=== PATIENT | female | born 1985 | race African-American/Black ===

== ENCOUNTER 2020-06-21 07:44 | Emergency (ER) | payer OTHER, SELFPAY ==
[2020-06-21 07:54] VITALS: BP 142/105; PULSE 87; RESP 20; TEMP 36.7; O2SAT 100
[2020-06-21] MEDS: diphenhydrAMINE HCl CAP 25 MG CAPSULE PO (08:37)
[2020-06-21] MEDS: FAMOTIDINE 20 MG TABLET PO (08:37)
--- NOTE | 2020-06-21 09:06 | ED.GENADULT ---
HPI - General Adult General Chief complaint: Unspecified Stated complaint: swollen lip Time Seen by Provider: 06/21/20 07:53 History of Present Illness HPI narrative: Patient is a 34-year-old female who presents ER with swelling to her lower lip. Left side. Began yesterday evening. Remains swollen this morning. Patient takes Metformin/HCTZ/amlodipine daily in the mornings. She had not taken medications last night prior to this starting. No difficulty breathing or swallowing. Reports this is happened intermittently over the last couple years. Denies any dental pain or trauma. No new lip loss or lipstick. She reports taking Benadryl last night but has not taken anything else today. Patient also reports that over the last week she has had some sinus congestion and tearing of the eyes related to seasonal allergies. Related Data Home Medications Medication Instructions Recorded Confirmed amlodipine 5 mg PO DAILY 06/21/20 06/21/20 hydrochlorothiazide 25 mg PO DAILY 06/21/20 06/21/20 metformin 500 mg PO BID 06/21/20 06/21/20 Allergies Allergy/AdvReac Type Severity Reaction Status Date / Time No Known Allergies Allergy Mild Unverified 06/21/20 07:58 Review of Systems Constitutional: Constitutional: Denies chills and Denies fever(s) ENT: Denies dental pain, Denies dysphagia, Denies hoarseness, Reports lip swelling, Denies mouth lesions, Reports nasal congestion, Denies sore throat, Denies throat swelling and Denies tongue swelling Respiratory: Respiratory: Denies cough, Denies dyspnea and Denies wheezing PMFSH Past Medical History Medical History (Updated 06/21/20 @ 09:46 by Cam Zambrano MD) Hypertension Prediabetes Surgical History Surgical History (Updated 06/21/20 @ 09:10 by Cam Zambrano MD) No history of previous surgery Social History Social History Gender identity (if verbalized by the patient): Female Exam Narrative: Exam Narrative: GENERAL: Well-appearing, well-nourished, and in no acute distress. HEAD: Normocephalic, atraumatic. ENT: Mucous membranes moist. Mild edema of the left lower lip. No intraoral ulcers. No evidence of infection to the outer lip. No lingular sublingular swelling. Tolerating oral secretions without issue. CHEST: No respiratory distress. No stridor. NEURO: Alert and oriented x3. PSYCH: Normal mood and affect. Course Course Emergency Course: No change in swelling of lip after Pepcid and Benadryl. Patient reports she cannot take steroids because it causes swelling for throat and tongue. Recommend she hold her home medications and follow-up with her doctor. She needs referral for allergy/immunology which she is verbalized understanding about. Vital Signs Vital signs: Vital Signs Temperature 98.1 F 06/21/20 07:54 Pulse Rate 87 06/21/20 07:54 Respiratory Rate 20 06/21/20 07:54 Blood Pressure 142/105 H 06/21/20 07:54 Pulse Oximetry 100 06/21/20 07:54 Temperature 98.1 F 06/21/20 07:54 Pulse Rate 87 06/21/20 07:54 Respiratory Rate 20 06/21/20 07:54 Blood Pressure 142/105 H 06/21/20 07:54 Pulse Oximetry 100 06/21/20 07:54 Medical Decision Making Vital Signs Vital Signs: Vital Signs Temperature 98.1 F 06/21/20 07:54 Pulse Rate 87 06/21/20 07:54 Respiratory Rate 20 06/21/20 07:54 Blood Pressure 142/105 H 06/21/20 07:54 Pulse Oximetry 100 06/21/20 07:54 Temperature 98.1 F 06/21/20 07:54 Pulse Rate 87 06/21/20 07:54 Respiratory Rate 20 06/21/20 07:54 Blood Pressure 142/105 H 06/21/20 07:54 Pulse Oximetry 100 06/21/20 07:54 Discharge Plan Discharge Clinical Impression: Angioedema of lips Patient Disposition: Home, Self-Care Condition: Stable Instructions: Angioedema (ED) Additional Instructions: You have angioedema of your lip. This can sometimes be provoked by medications but often times it can be no autoimmune reaction. You should be referred to an aller
[2020-06-21 10:02] VITALS: BP 142/105; PULSE 77; RESP 20; O2SAT 100
== END 2020-06-21 10:03 | disposition home or self-care (01) ==
PROVIDERS: Emergency Provider Emergency Medicine; PCP Internal Medicine
DX: T78.3XXA Angioneurotic edema, initial encounter (principal); Z79.84 Long term (current) use of oral hypoglycemic drugs; I10 Essential (primary) hypertension; E11.9 Type 2 diabetes mellitus without complications
CPT/HCPCS: 99283; A9270

== ENCOUNTER 2020-09-07 10:15 | Outpatient (CLI) | payer OTHER, SELFPAY ==
--- NOTE | ~2020-09-07 | XR_ITS ---
EXAMINATION:XR_[id number]_CR DATE: 09/07/2020 10:41 INDICATION: Neck pain TECHNIQUE: AP, lateral, lateral swimmers and odontoid views of the cervical spine are provided. COMPARISON: None FINDINGS: Mild cervical dextrocurvature. Reversal of the normal cervical lordosis in the lower cervical spine w ith straightening of the upper cervical lordosis. 1-2 mm anterolisthesis C4 on C5. Odontoid is intact . Normal atlantoaxial interval. Vertebral body heights are normal. Disc spaces are normal. 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 There is mild facet osteoarthritis at C3-C4, C4-C5 and C5-6. Prevertebral soft tissues are normal. IMPRESSION: 1. Mild cervical spondylosis. Reviewed, dictated and finalized at location B. PLANNER
== END 2020-09-07 10:16 | disposition home or self-care (01) ==
PROVIDERS: PCP Internal Medicine; Visit Provider Internal Medicine
DX: M54.2 Cervicalgia (principal); X58.XXXA Exposure to other specified factors, initial encounter; M47.812 Spondylosis without myelopathy or radiculopathy, cervical region
CPT/HCPCS: 72040

== ENCOUNTER 2020-11-01 07:04 | Emergency (ER) | payer OTHER, SELFPAY ==
--- NOTE | ~2020-11-01 | XR_ITS ---
EXAMINATION: XR chest 2V DATE: 11/01/2020 07:49 INDICATION: Shortness of breath and asthma TECHNIQUE: PA and lateral views of the chest were obtained. COMPARISON: None FINDINGS: The lungs are clear with no focal airspace opacities, pulmonary edema, pleural effusion or pneumothor ax. The cardiomediastinal silhouette is normal. Visualized bones and soft tissues are unremarkable. IMPRESSION: 1. No acute cardiopulmonary disease. Reviewed, dictated and finalized at location A.
[2020-11-01 07:07] VITALS: BP 165/99; PULSE 85; RESP 20; TEMP 36.3; O2SAT 100
[2020-11-01 07:30] VITALS: PULSE 86; RESP 20
[2020-11-01] MEDS: ALBUTEROL SULFATE NEB 2.5 MG/0.5 ML INH INHALATION ×2 (07:30→09:34)
[2020-11-01] MEDS: IPRATROPIUM BR 0.02% INH SOLN 0.5 MG/2.5 ML VIAL INHALATION (07:30)
[2020-11-01 07:32] LABS: Basophils Percent Auto 0.3 % (0.2-1.2); Eosinophils Absolute Auto 0.2 K/mm3 (0-0.3); Eosinophils Percent Auto 3.2 % (0-4.4); Hematocrit 37.5 % (37.0-47.0); Hemoglobin 12.3 g/dL (12.0-15.0); Immature Granulocyte Absolute 0.01 K/mm3 (0.00-0.031); Immature Granulocyte Percent A 0.2 % (0-0.5); Lymphocytes Absolute Auto 1.97 K/mm3 (0.9-3.2); Lymphocytes Percent Auto 31.5 % (18.3-44.2); Mean Corpuscular HGB Conc 32.8 g/dl (32-36); Mean Corpuscular Hemoglobin 26.9 pg (26-34); Mean Corpuscular Volume 82.1 fl (80-100); Mean Platelet Volume 9.1 fl (7.4-10.4); Monocytes Absolute Auto 0.4 K/mm3 (0.1-0.6); Monocytes Percent Auto 5.9 % (2.6-8.5); Neutrophils Absolute Auto 3.7 K/mm3 (1.3-6.7); Neutrophils Percent Auto 58.9 % (45.5-73.1); Platelet Count Result 381 k/mm3 (150-375); Red Blood Count 4.57 M/mm3 (4.2-5.4); Red Cell Distribution Width 14.7 % (11.5-14.5); White Blood Count 6.3 K/mm3 (4.5-10.0)
--- NOTE | 2020-11-01 07:33 | ED.ASTHMA ---
HPI - Asthma General Chief Complaint: Asthma Stated Complaint: wheezing Time Seen by Provider: 11/01/20 07:08 Source: patient History of Present Illness HPI Narrative: Patient is a 35 y/o female complaining mild SOB starting 2 hours ago. She states the she used her inhaler which did not help. She has no fever, chills, cough or chest pain. She has history of asthma. Related Data Home Medications Medication Instructions Recorded Confirmed albuterol sulfate INHALATION 11/01/20 amlodipine 11/01/20 fluticasone propionate [Flovent INHALATION 11/01/20 HFA] metformin mg 11/01/20 Allergies Allergy/AdvReac Type Severity Reaction Status Date / Time No Known Allergies Allergy Mild Verified 11/01/20 07:12 Review of Systems Constitutional: Constitutional: Denies chills, Denies fever(s), Denies headache(s) and Denies weakness Eyes: Eyes: Denies blurry vision ENT: Denies headache(s) and Denies neck pain Cardiovascular: Cardiovascular: Denies chest pain and Reports dyspnea Respiratory: Respiratory: Denies cough and Reports dyspnea Gastrointestinal: Gastrointestinal: Denies abdominal pain, Denies diarrhea, Denies nausea and Denies vomiting Genitourinary: Genitourinary: Denies hematuria and Denies dysuria Musculoskeletal: Musculoskeletal: Denies back pain and Denies neck pain Neurologic: Denies headache(s) and Denies weakness PMFSH Past Medical History Medical History Hypertension Prediabetes Surgical History Surgical History No history of previous surgery Social History Social History Gender identity (if verbalized by the patient): Female Exam Const: General: no acute distress and well developed Orientation/consciousness: oriented to person, oriented to place, oriented to time and patient oriented x3 HENMT: Head: normocephalic Ears: external ears normal General nose exam: Normal external nose present Eyes: General: appearance normal, both eyes and all related structures Conjunctivae: conjunctivae normal Neck: Neck: normal visual inspection and full ROM Chest: Chest palpation & inspection: normal inspection of the chest and no tenderness Resp: Effort & Inspection: normal respiratory effort Auscultation: wheezes Cardio: Rate: regular rate Rhythm: regular rhythm GI: GI Palp: No abdominal tenderness and Yes Soft to palpation Skin: General skin exam: normal color and turgor normal Neuro: General: oriented to person, oriented to place, oriented to time and patient oriented x3 Cognition (Neuro): normal cognition Extrem: General: normal to inspection, full ROM and no pedal edema Psych: Appearance: grossly normal Mental Status: mental status grossly normal Affect: normal affect Course Reevaluation(s) Reevaluation #1: Rechecked. Patient feels better. Still faint wheeze on exam. Will repeat neb and discharge. Date: 11/01/20 Time: 09:29 Vital Signs Vital signs: Vital Signs Temperature 36.3 C L 11/01/20 07:07 Pulse Rate 85 11/01/20 07:07 Respiratory Rate 20 11/01/20 07:07 Blood Pressure 165/99 H 11/01/20 07:07 Pulse Oximetry 100 11/01/20 07:07 Temperature 36.3 C L 11/01/20 07:07 Pulse Rate 84 11/01/20 09:35 Respiratory Rate 18 11/01/20 09:35 Blood Pressure 138/100 H 11/01/20 08:47 Pulse Oximetry 100 11/01/20 08:47 MDM - Asthma Lab Data Result diagrams: 11/01/20 07:27 11/01/20 07:27 Labs: Lab Results 11/01/20 11/01/20 Range/Units 07:27 07:27 WBC 6.3 (4.5-10.0) K/mm3 RBC 4.57 (4.2-5.4) M/mm3 Hgb 12.3 (12.0-15.0) g/dL Hct 37.5 (37.0-47.0) % MCV 82.1 (80-100) fl MCH 26.9 (26-34) pg MCHC 32.8 (32-36) g/dl RDW 14.7 H (11.5-14.5) % Plt Count 381 H (150-375) k/mm3 MPV 9.1 (7.4-10.4) fl Immature Gran % (Auto) 0.2 (0-0
[2020-11-01 07:41] VITALS: PULSE 90; RESP 18
[2020-11-01] MEDS: predniSONE 20 MG TABLET PO (07:42)
[2020-11-01 07:50] LABS: Anion Gap 8 mmol/L (8-16); Blood Urea Nitrogen 12 mg/dL (7-17); Calcium 9.1 mg/dL (8.4-10.2); Carbon Dioxide 27 mmol/L (22-30); Chloride 102 mmol/L (98-107); Estimated CRCL calculation 90 ml/min; Estimated Glomerular Filt Rate > 60; Glucose 103 mg/dL (65-105); Potassium 3.3 mmol/L (3.4-5.0); Sodium 137 mmol/L (137-145)
[2020-11-01 08:47] VITALS: BP 138/100; PULSE 78; RESP 20; O2SAT 100
[2020-11-01] MEDS: POTASSIUM CHLORIDE 20 MEQ TABLET PO (09:25)
[2020-11-01 09:35] VITALS: PULSE 84; RESP 18
== END 2020-11-01 09:44 | disposition home or self-care (01) ==
PROVIDERS: Emergency Provider Emergency Medicine; PCP Internal Medicine
DX: J45.901 Unspecified asthma with (acute) exacerbation (principal); I10 Essential (primary) hypertension; R73.03 Prediabetes; Z79.84 Long term (current) use of oral hypoglycemic drugs
CPT/HCPCS: 36415; 71046; 80048; 85025; 94640; 99283; A9270; J7512

== ENCOUNTER 2021-08-26 10:54 | Outpatient (CLI) | payer OTHER, SELFPAY ==
[2021-08-26 11:35] LABS: Basophils Percent Auto 0.3 % (0.2-1.2); Eosinophils Absolute Auto 0.1 K/mm3 (0-0.3); Eosinophils Percent Auto 1.6 % (0-4.4); Hematocrit 37.9 % (37.0-47.0); Hemoglobin 12.4 g/dL (12.0-15.0); Immature Granulocyte Absolute 0.01 K/mm3 (0.00-0.031); Immature Granulocyte Percent A 0.1 % (0-0.5); Lymphocytes Absolute Auto 2.97 K/mm3 (0.9-3.2); Lymphocytes Percent Auto 39.2 % (18.3-44.2); Mean Corpuscular HGB Conc 32.7 g/dl (32-36); Mean Corpuscular Hemoglobin 26.6 pg (26-34); Mean Corpuscular Volume 81.3 fl (80-100); Monocytes Absolute Auto 0.4 K/mm3 (0.1-0.6); Monocytes Percent Auto 5.5 % (2.6-8.5); Neutrophils Percent Auto 53.3 % (45.5-73.1); Platelet Count Result 408 k/mm3 (150-375); Red Blood Count 4.66 M/mm3 (4.2-5.4); Red Cell Distribution Width 15.3 % (11.5-14.5); White Blood Count 7.6 K/mm3 (4.5-10.0)
[2021-08-26 11:38] LABS: Add Urine Microscopic? YES; Appearance Urine Clear (Clear); Bacteria Urine Trace /hpf; Bilirubin Urine Negative (Negative); Blood Urine 1+ (Negative); Color Urine Yellow (Yellow); Glucose Urine UA Negative (Negative); Ketones Urine Negative (Negative); Leukocyte Esterase Ur Negative LEU/UL (Negative); Mucus Urine Rare /lpf; Nitrate Urine Negative (Negative); Protein Urine Negative (Negative); Specific Grav Ur 1.021 (1.001-1.035); Squamous Epithelial Cell Urine Moderate /hpf (Few); Urobilinogen Urine Negative mg/dL (<2.0)
[2021-08-26 11:48] LABS: Alanine Aminotransferase 18 U/L (4-35); Albumin Level 4.4 g/dL (3.5-5.1); Alkaline Phosphatase 57 U/L (38-126); Anion Gap 9 mmol/L (8-16); Aspartate Amino Transferase 29 U/L (14-36); Bilirubin,Total 0.5 mg/dL (0.2-1.3); Blood Urea Nitrogen 11 mg/dL (7-17); Calcium 9.3 mg/dL (8.4-10.2); Carbon Dioxide 23 mmol/L (22-30); Chloride 104 mmol/L (98-107); Cholesterol 223 mg/dL (0-200); Estimated Glomerular Filt Rate > 60; Glucose 129 mg/dL (65-110); HDL Direct 76 mg/dL; Potassium 3.3 mmol/L (3.4-5.0); Sodium 136 mmol/L (137-145); Triglycerides 42 mg/dL (<150)
[2021-08-26 11:59] LABS: LDL Cholesterol Direct 109 mg/dL
[2021-08-26 12:15] LABS: Thyroid Stimulating Hormone 0.781 uIU/mL (0.465-4.680)
[2021-08-26 12:20] LABS: Iron 69 ug/dL (37-170)
[2021-08-26 12:29] LABS: Percent Iron Saturation 19 % (20-50)
[2021-08-26 12:40] LABS: Vitamin D 25 Hydroxy 43.5 ng/mL
[2021-08-26 12:48] LABS: Erythrocyte Sedimentation Rate 22 mm/hr (0-20)
[2021-08-26 12:52] LABS: Folic Acid > 20.0 ng/mL (2.76->20)
[2021-08-26 21:03] LABS: Creatinine Urine 241.9 mg/dL
[2021-08-26 21:07] LABS: MALB Creatinine Ratio 8.6 mg/g (0-30); Microalbumin Urine Random 20.8 mg/L (0-16.7)
[2021-08-29 04:00] LABS: Insulin Level Total 94.6 uIU/mL (<=19.6)
[2021-08-31 14:34] LABS: CRP, High Sensitivity 1.9 mg/L (***)
== END 2021-08-26 10:55 | disposition home or self-care (01) ==
LOC: ANHLAB 10:56
PROVIDERS: PCP Internal Medicine; Visit Provider Internal Medicine
DX: Z13.9 Encounter for screening, unspecified (principal); E66.9 Obesity, unspecified; I10 Essential (primary) hypertension; E28.2 Polycystic ovarian syndrome; G47.30 Sleep apnea, unspecified; K59.00 Constipation, unspecified
CPT/HCPCS: 36415; 80053; 80061; 81001; 82043; 82306; 82607; 82728; 82746; 83036; 83525; 83540; 83550; 84436; 84443; 85025; 85652; 86141

== ENCOUNTER 2021-09-14 07:44 | Outpatient (CLI) | payer OTHER, SELFPAY ==
--- NOTE | 2021-09-21 13:56 | WPDHOMESLEEP ---
Sleep Study - Home Unattended Date of Study: 09/14/21 <Betsy Martinez DO - Last Filed: 09/21/21 14:05> Ordering Provider: Jadiel Blandon APRN <Betsy Martinez DO - Last Filed: 09/21/21 14:05> Interpreting Provider: Betsy Martinez DO <Betsy Martinez, DO - Last Filed: 09/21/21 14:05> Home Sleep Study Type: Apnea Link Air <Betsy Martinez DO - Last Filed: 09/21/21 14:05> Height: 1.68 m <Betsy Martinez DO - Last Filed: 09/21/21 14:05> Weight: 105.234 kg <Betsy Martinez DO - Last Filed: 09/21/21 14:05> Body Mass Index: 37.4 <Betsy Martinez DO - Last Filed: 09/21/21 14:05> Neck Circumference (inches): 17.5 <Betsy Martinez DO - Last Filed: 09/21/21 14:05> [place]: 4 <Betsy Martinez DO - Last Filed: 09/21/21 14:05> Reason for Sleep Study unrefreshing sleep and daytime hypersomnia <Betsy Martinez DO - Last Filed: 09/21/21 14:05> Sleep History The patient is a 36-year-old female with asthma, hypertension and prediabetes that had a home sleep test ordered by the pulmonary group for evaluation of sleep apnea. The patient frequently awakens from sleep short of breath. She frequently awakens at night with heartburn, belching or coughing. She frequently snores loud enough others complain periods she denies having trouble sleeping when she has a cold. She frequently wakes up gasping for air throughout the night. She frequently has breathing problems at night observed by others. She denies sweating excessively at night. She rarely notices heart palpitations or irregular heartbeats during the night. She denies falling asleep during the day and while driving. She denies having trouble at work due to sleepiness. She denies sleep paralysis, cataplexy and hypnagogic / hypnopompic hallucinations. She occasionally has nightmares. She occasionally has thoughts racing through her mind. She occasionally feels sad or depressed. She occasionally has anxiety. She denies noticing parts of her body jerk. She denies kicking throughout the night. She denies having crawling and aching feelings in her legs as well as leg pain during. She denies grinding her teeth during sleep awakening with morning jaw pain. She denies being bothered by pain during the day and being awakened by pain during the night. She denies waking up feeling stiff in the morning with sore achy muscles. She goes to bed at 1:00 a.m. on weekdays and at midnight on the weekends. It typically takes her a couple of hours to fall asleep. She wakes up 3-4 times throughout the night to urinate or to get some water. It takes her 30-60 minutes to fall back asleep. She wakes up at 5:30 a.m. on the weekdays and at 6:00 a.m. on the weekends. She typically gets 3 hours of sleep per night. she will stay in bed for 10 minutes after waking up in the morning. She currently lives with her 2 children. She works the same shift on Monday through Monday. She does not consume any caffeinated beverages within 2 hours of bedtime. She does not engage in physical exercise before bedtime. She will watch television before falling asleep. She will not take any naps in the afternoon or the evening. She drinks 1 cup of coffee in the morning. She denies tobacco, alcohol recreational drug use. <Betsy Martinez DO - Last Filed: 09/21/21 14:05> [facility] Past Medical History Medical History: Medical History Asthma Hypertension Prediabetes <Betsy Martinez DO - Last Filed: 09/21/21 14:05> Surgical History Surgical History: Surgical History No history of previous surgery <Betsy Martinez DO - Last Filed: 09/21/21 14:05> Social History Social History: Social History Smoking status: Never
[2021-09-21 14:05] VITALS: BMI 37.4
--- NOTE | 2022-08-10 09:03 | SLEEP ---
pt struggling with pap
--- NOTE | 2022-10-25 08:28 | SLEEP ---
pt has not used device since 01/02
== END 2021-09-20 10:55 | disposition home or self-care (01) ==
LOC: ANHCSM 07:49
PROVIDERS: PCP Internal Medicine; Visit Provider Nurse Practitioner Family
DX: G47.33 Obstructive sleep apnea (adult) (pediatric) (principal); G47.10 Hypersomnia, unspecified; R06.83 Snoring
CPT/HCPCS: 95806

== ENCOUNTER 2022-01-17 10:49 | Outpatient (CLI) | payer OTHER, SELFPAY ==
--- NOTE | ~2022-01-17 | XR_ITS ---
EXAMINATION: XR chest 2V 01/17/2022 11:14 INDICATION: Moderate persistent asthma with acute exacerbation PROCEDURE: 2 view chest COMPARISON: 11/01/2020 FINDINGS: The lungs are clear. The cardiomediastinal silhouette is within normal limits. There are no pleural effusions. There is no pneumothorax suspected. IMPRESSION: 1: NO ACUTE CARDIOPULMONARY DISEASE. Reviewed, dictated and finalized at location B.
== END 2022-01-17 10:50 | disposition home or self-care (01) ==
PROVIDERS: PCP Internal Medicine; Visit Provider Internal Medicine
DX: J45.41 Moderate persistent asthma with (acute) exacerbation (principal); J40 Bronchitis, not specified as acute or chronic
CPT/HCPCS: 71046

== ENCOUNTER 2022-07-12 13:55 | Emergency (ER) | payer OTHER, SELFPAY ==
[2022-07-12 14:42] VITALS: BP 144/108; PULSE 91; RESP 16; TEMP 36.6; O2SAT 98
--- NOTE | 2022-07-12 15:17 | ED.URI ---
HPI - URI/Sore Throat General Chief Complaint: Upper Respiratory Infection Stated Complaint: cold/flu like sx Time Seen by Provider: 07/12/22 15:17 Source: patient and RN notes reviewed Mode of arrival: ambulatory Limitations: no limitations History of Present Illness HPI Narrative: 37-year-old female presenting for complaint of sinus pressure and congestion, cough and sore throat over the last 2 days. Cough is nonproductive. She endorses yesterday she had some body aches. Sore throat and body aches have subsided. She denies shortness of breath, wheezing, nausea, vomiting, diarrhea, fevers or chills. She has a history of asthma and has been using albuterol inhaler as needed. She has not taken anything for symptoms. She denies known sick contacts. MD elicited complaint: cough Related Data Home Medications Medication Instructions Recorded Confirmed clonidine HCl 0.1 mg tablet 0.1 mg TID 07/12/22 07/12/22 hydrochlorothiazide 25 mg tablet 25 mg DAILY 07/12/22 07/12/22 metformin 500 mg tablet 500 mg BID 07/12/22 07/12/22 Allergies Allergy/AdvReac Type Severity Reaction Status Date / Time No Known Allergies Allergy Mild Verified 07/12/22 14:48 Review of Systems Review of Systems: ROS per HPI [facility] Past Medical History Medical History Asthma Hypertension Prediabetes Surgical History Surgical History No history of previous surgery Social History Social History Smoking status: Never smoker Gender identity (if verbalized by the patient): Female Exam Narrative: GENERAL: Ill-appearing, nontoxic EYES: PERRLA, conjunctivae clear ENT: Mucous membranes moist. Sinus congestion. TMs pearly kwon with dull light reflex bilaterally; no tragal tenderness. Oropharynx erythematous without lesions or exudate, no drooling, no hoarseness, no trismus, uvula midline. No tripod positioning, muffled voice, soft palate or pharyngeal wall bulging NECK: Supple. No lymphadenopathy CHEST: Clear to auscultation, breath sounds equal. No wheezing, rhonchi, rales, or stridor. No respiratory distress, speaks in full sentences. HEART: Regular rate and rhythm. No murmur heard. SKIN: Warm, dry, no rash. NEURO: Alert and oriented x3. PSYCH: Normal mood and affect Course Course Emergency Course: Patient is aware of diagnosis, understands and agrees to treatment plan. Anticipatory guidance given. Patient agrees to follow-up as directed and is aware of reasons to seek care at the emergency department. Portions of this record may have been created with voice recognition software Level of Care: Express Care Visit Vital Signs Vital signs: Vital Signs Temperature 97.9 F 07/12/22 14:42 Pulse Rate 91 07/12/22 14:42 Respiratory Rate 16 07/12/22 14:42 Blood Pressure 144/108 H 07/12/22 14:42 Pulse Oximetry 98 07/12/22 14:42 Oxygen Delivery Room Air 07/12/22 14:42 Temperature 97.9 F 07/12/22 14:42 Pulse Rate 91 07/12/22 14:42 Respiratory Rate 16 07/12/22 14:42 Blood Pressure 144/108 H 07/12/22 14:42 Pulse Oximetry 98 07/12/22 14:42 Oxygen Delivery Room Air 07/12/22 14:42 reviewed MDM - URI/Sore Throat MDM Narrative Medical decision making narrative: covid and flu negative. Advised supportive measures and signs/symptoms to go to the ER. Pt is appropriate for outpt treatment and f/u. Differential Diagnosis Differential diagnosis: Likely upper respiratory infection, sinusitis and viral infection Lab Data Labs: Lab Results 07/12/22 Range/Units 15:28 POC SARS CoV-2 Ag Negative (Negative) Influenza A Screen Negative Reference Range: Negative Influenza B Screen Negative Reference Range: Nega
== END 2022-07-12 16:06 | disposition home or self-care (01) ==
PROVIDERS: Emergency Provider Nurse Practitioner Family; PCP Internal Medicine
DX: J06.9 Acute upper respiratory infection, unspecified (principal); I10 Essential (primary) hypertension; Z20.822 Contact with and (suspected) exposure to COVID-19
CPT/HCPCS: 87426; 87804; 99213; C9803; G0463

== ENCOUNTER 2022-08-08 17:35 | Emergency (ER) | payer OTHER, SELFPAY ==
--- NOTE | ~2022-08-08 | XR_ITS ---
EXAM: XR shoulder RT min 2V DATE: 08/08/2022 19:21 HISTORY: rt anterior shoulder pain since this a.m no injury . COMPARISON: None available. FINDINGS: Normal mineralization. No fracture or dislocation. No lytic or blastic lesion. Joint space s are maintained. Amorphous calcific density projecting over the biceps anchor likely representing ca lcific tendinitis. No erosion or periosteal change. Soft tissues within normal limits. IMPRESSION: No acute osseous finding in the right shoulder. Reviewed, dictated and finalized at location K. GRATION ATTORNEY
[2022-08-08 18:02] VITALS: BP 146/107; PULSE 103; RESP 16; TEMP 36.8; O2SAT 100
--- NOTE | 2022-08-08 18:48 | ED.EXTPRO ---
HPI - Extremity Problem General Chief complaint: Extremity Injury, Upper Stated complaint: Right Arm Pain Time Seen by Provider: 08/08/22 18:48 Source: patient, RN notes reviewed and old records reviewed Mode of arrival: ambulatory Limitations: no limitations History of Present Illness HPI Narrative: 37-year-old female presents to the [facility] with right anterior shoulder pain that started when she woke up this morning. Had taken 1 ibuprofen. Has decreased range of motion without bruising, swelling. 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 Positive radial pulse noted. Capillary refill under 2 seconds. Related Data Home Medications Medication Instructions Recorded Confirmed clonidine HCl 0.1 mg tablet 0.1 mg TID 07/12/22 08/08/22 hydrochlorothiazide 25 mg tablet 25 mg DAILY 07/12/22 08/08/22 metformin 500 mg tablet 500 mg BID 07/12/22 08/08/22 azelastine 137 mcg (0.1 %) nasal 1 spray intranasal DAILY 08/08/22 08/08/22 spray aerosol cyclobenzaprine 10 mg tablet 10 mg PO TID 08/08/22 08/08/22 losartan 100 mg tablet 100 mg PO DAILY 08/08/22 08/08/22 omeprazole 20 mg capsule,delayed 20 mg PO DAILY 08/08/22 08/08/22 release Allergies Allergy/AdvReac Type Severity Reaction Status Date / Time No Known Allergies Allergy Mild Verified 08/08/22 18:20 Review of Systems Review of Systems: All systems reviewed & are unremarkable except as noted in HPI and below Constitutional: Constitutional: Reports no additional constitutional complaints Eyes: Eyes: Reports no additional eye complaints ENT: Reports system reviewed and no additional complaints, except as documented Cardiovascular: Cardiovascular: Reports no additional cardiovascular complaints, Denies chest pain and Denies dyspnea Respiratory: Respiratory: Reports no additional respiratory complaints, Denies chest congestion, Denies cough and Denies dyspnea Gastrointestinal: Gastrointestinal: Reports no additional gastrointestinal complaints, Denies abdominal pain, Denies nausea and Denies vomiting Musculoskeletal: Musculoskeletal: Reports as per HPI and Reports arthralgias ( right shoulder) Integumentary/Breasts: Skin/Breast: Reports system reviewed and no additional complaints, except as docu Neurologic: Reports system reviewed and no additional complaints, except as documented Psychiatric: Psychiatric: Reports no additional psychiatric complaints Allergic/Immunologic: Allergic/Immunologic: Reports no additional allergic/immunologic complaints PMFSH Past Medical History Medical History Asthma Hypertension Prediabetes Surgical History Surgical History No history of previous surgery Social History Social History Smoking status: Never smoker Gender identity (if verbalized by the patient): Female Comments At the time of my signature, I reviewed and agree with the nursing past medical, surgical, social, and family history. There is no relevant family history pertinent to the patient complaint. Exam Const: General: cooperative, healthy appearing, comfortable, no acute distress, well developed, alert and well nourished Nutritional Appearance: well nourished Orientation/consciousness: patient oriented x3 Limitations: no limitations HENMT: Head: normal to inspection Ears: hearing grossly normal bilaterally and external ears normal Face/Nose/Sinus: Normal external nose present, Normal nares present, Normal nasal mucous membranes and turbinates present and normal facial exam Face and sinus: normal facial exam Mouth: Yes Normal oral and palatal mucosa present, Yes lip normal and Yes moist mucous membranes Throat: posterior oropharynx normal and uvula midline Eyes: General: appearance normal, both eyes and all related structures Alignment and Position: alignment normal
== END 2022-08-08 20:03 | disposition home or self-care (01) ==
PROVIDERS: Emergency Provider Nurse Practitioner; PCP Internal Medicine
DX: M75.31 Calcific tendinitis of right shoulder (principal); J45.909 Unspecified asthma, uncomplicated; I10 Essential (primary) hypertension; R73.03 Prediabetes
CPT/HCPCS: 73030; 99213; G0463

== ENCOUNTER 2023-02-07 10:29 | Outpatient (CLI) | payer OTHER, SELFPAY ==
[2023-02-07 11:14] LABS: Basophils Percent Auto 0.3 % (0.2-1.2); Eosinophils Absolute Auto 0.3 K/mm3 (0-0.3); Eosinophils Percent Auto 3.6 % (0-4.4); Hematocrit 38.1 % (37.0-47.0); Hemoglobin 11.7 g/dL (12.0-15.0); Immature Granulocyte Absolute 0.02 K/mm3 (0.00-0.031); Immature Granulocyte Percent A 0.3 % (0-0.5); Lymphocytes Absolute Auto 2.64 K/mm3 (0.9-3.2); Lymphocytes Percent Auto 37.7 % (18.3-44.2); Mean Corpuscular HGB Conc 30.7 g/dl (32-36); Mean Corpuscular Hemoglobin 24.7 pg (26-34); Mean Corpuscular Volume 80.4 fl (80-100); Mean Platelet Volume 9.4 fl (7.4-10.4); Monocytes Absolute Auto 0.2 K/mm3 (0.1-0.6); Monocytes Percent Auto 3.4 % (2.6-8.5); Neutrophils Absolute Auto 3.8 K/mm3 (1.3-6.7); Neutrophils Percent Auto 54.7 % (45.5-73.1); Platelet Count Result 510 k/mm3 (150-375); Red Blood Count 4.74 M/mm3 (4.2-5.4); Red Cell Distribution Width 15.3 % (11.5-14.5)
[2023-02-07 11:17] LABS: Appearance Urine Cloudy (Clear); Bacteria Urine Rare /hpf; Bilirubin Urine Negative (Negative); Blood Urine Negative (Negative); Color Urine Yellow (Yellow); Glucose Urine UA Negative (Negative); Ketones Urine Negative (Negative); Leukocyte Esterase Ur Negative LEU/UL (NEGATIVE); Nitrate Urine Negative (Negative); Non Pathogenic Casts 0-2; Protein Urine Negative (Negative); Specific Grav Ur 1.014 (1.001-1.035); Squamous Epithelial Cell Urine Few /hpf (Few); WBC Urine 0-5 /hpf (0-3)
[2023-02-07 11:24] LABS: Alanine Aminotransferase 25 U/L (6-35); Albumin Level 4.3 g/dL (3.5-5.1); Alkaline Phosphatase 51 U/L (38-126); Anion Gap 7 mmol/L (8-16); Aspartate Amino Transferase 31 U/L (14-36); Bilirubin,Total 0.4 mg/dL (0.2-1.3); Blood Urea Nitrogen 11 mg/dL (7-17); Calcium 9.3 mg/dL (8.4-10.2); Carbon Dioxide 26 mmol/L (22-30); Chloride 104 mmol/L (98-107); Cholesterol 208 mg/dL (0-200); Estimated Glomerular Filt Rate > 60; Glucose 158 mg/dL (65-110); HDL Direct 71 mg/dL; Potassium 3.1 mmol/L (3.4-5.0); Sodium 137 mmol/L (137-145); Triglycerides 105 mg/dL (<150); Uric Acid 5.2 mg/dL (2.5-7.5)
[2023-02-07 11:35] LABS: LDL Cholesterol Direct 102 mg/dL
[2023-02-07 11:36] LABS: Creatinine Urine 215.8 mg/dL
[2023-02-07 11:37] LABS: Add Urine Microscopic? YES
[2023-02-07 11:40] LABS: Erythrocyte Sedimentation Rate 18 mm/hr (0-20)
[2023-02-07 11:41] LABS: MALB Creatinine Ratio 6.7 mg/g (0-30); Microalbumin Urine Random 14.4 mg/L (0-16.7)
[2023-02-07 11:46] LABS: Free T4 Free Thyroxine 0.91 ng/mL (0.78-2.19)
[2023-02-07 12:03] LABS: Hemoglobin A1C 5.7 % (<5.7)
== END 2023-02-07 10:30 | disposition home or self-care (01) ==
LOC: ANHLAB 10:32
PROVIDERS: PCP Internal Medicine; Visit Provider Internal Medicine
DX: E66.01 Morbid (severe) obesity due to excess calories (principal); I10 Essential (primary) hypertension; J45.909 Unspecified asthma, uncomplicated; G47.30 Sleep apnea, unspecified; E28.2 Polycystic ovarian syndrome
CPT/HCPCS: 36415; 80053; 80061; 81001; 82043; 83036; 84439; 84443; 84550; 85025; 85652

== ENCOUNTER 2023-05-27 16:20 | Emergency (ER) | payer OTHER, SELFPAY ==
[2023-05-27] VITALS (7 sets, daily range): BP systolic 131–187; BP diastolic 84–107; PULSE 101–116; RESP 14–28; TEMP 36.8; O2SAT 99–100
[2023-05-27 17:18] LABS: Basophils Percent Auto 0.2 % (0.2-1.2); Eosinophils Absolute Auto 0.1 K/mm3 (0-0.3); Eosinophils Percent Auto 1.3 % (0-4.4); Hematocrit 36.3 % (37.0-47.0); Hemoglobin 11.2 g/dL (12.0-15.0); Immature Granulocyte Absolute 0.02 K/mm3 (0.00-0.031); Immature Granulocyte Percent A 0.2 % (0-0.5); Lymphocytes Absolute Auto 0.68 K/mm3 (0.9-3.2); Lymphocytes Percent Auto 6.9 % (18.3-44.2); Mean Corpuscular HGB Conc 30.9 g/dl (32-36); Mean Corpuscular Hemoglobin 24.3 pg (26-34); Mean Corpuscular Volume 78.7 fl (80-100); Mean Platelet Volume 9.2 fl (7.4-10.4); Monocytes Absolute Auto 0.4 K/mm3 (0.1-0.6); Monocytes Percent Auto 4.2 % (2.6-8.5); Neutrophils Absolute Auto 8.6 K/mm3 (1.3-6.7); Neutrophils Percent Auto 87.2 % (45.5-73.1); Platelet Count Result 428 k/mm3 (150-375); Red Blood Count 4.61 M/mm3 (4.2-5.4); Red Cell Distribution Width 15.2 % (11.5-14.5); White Blood Count 9.9 K/mm3 (4.5-10.0)
[2023-05-27 17:32] LABS: Alanine Aminotransferase 18 U/L (6-35); Albumin Level 4.2 g/dL (3.5-5.1); Alkaline Phosphatase 54 U/L (38-126); Anion Gap 8 mmol/L (8-16); Aspartate Amino Transferase 28 U/L (14-36); Bilirubin,Total 0.8 mg/dL (0.2-1.3); Blood Urea Nitrogen 14 mg/dL (7-17); Calcium 9.2 mg/dL (8.4-10.2); Carbon Dioxide 23 mmol/L (22-30); Chloride 106 mmol/L (98-107); Estimated CRCL calculation 78 ml/min; Estimated Glomerular Filt Rate > 60; Glucose 104 mg/dL (65-110); Lipase 90 U/L (23-300); Potassium 3.2 mmol/L (3.4-5.0); Sodium 137 mmol/L (137-145)
[2023-05-27] MEDS: SODIUM CHLORIDE 0.9% IV 1,000 ML 999 ML IV CONT ×2 (17:42→18:20)
[2023-05-27] MEDS: ONDANSETRON INJ 4 MG/2 ML VIAL IV PUSH (17:42)
--- NOTE | 2023-05-27 17:53 | ED.NAVMDI ---
HPI - Nausea/Vomiting/Diarrhea General Chief complaint: Nausea/Vomiting/Diarrhea Stated complaint: vaginal bleeding Time Seen by Provider: 05/27/23 16:57 Source: patient Mode of arrival: ambulatory Limitations: no limitations History of Present Illness HPI Narrative: Patient is a 37-year-old female who presents to the ED with nausea and vomiting, vaginal bleeding. Patient reports she underwent a routine Pap smear on 05/23 at [facility] [place] in [place], [place]. She developed vaginal bleeding the next day and notes she was not supposed to start her menstrual cycle for another 10 days. She states bleeding has been fairly heavy. Today, she began feeling slightly lightheaded and developed N/V. She then prompted here. She did not contact her OBGYN. She does still feel nauseous currently. Denies abdominal pain, weakness, CALLE, vision changes, urinary sx's. Related Data Home Medications Medication Instructions Recorded Confirmed clonidine HCl 0.1 mg tablet 0.1 mg TID 07/12/22 08/08/22 hydrochlorothiazide 25 mg tablet 25 mg DAILY 07/12/22 08/08/22 metformin 500 mg tablet 500 mg BID 07/12/22 08/08/22 cyclobenzaprine 10 mg tablet 10 mg PO TID 08/08/22 08/08/22 losartan 100 mg tablet 100 mg PO DAILY 08/08/22 08/08/22 omeprazole 20 mg capsule,delayed 20 mg PO DAILY 08/08/22 08/08/22 release Allergies Allergy/AdvReac Type Severity Reaction Status Date / Time No Known Allergies Allergy Mild Verified 05/27/23 16:55 Review of Systems Review of Systems: CONSTITUTIONAL: Denies fever, chills, or sweats. EYES: Denies visual changes. CARDIOVASCULAR: Denies chest pain. RESPIRATORY: Denies dyspnea. GASTROINTESTINAL: See HPI. GENITOURINARY: See HPI. SKIN: Denies rash or itching. MUSCULOSKELETAL: Denies back pain, joint pain, or myalgia. NEUROLOGIC: Reports lightheadedness. Denies headache, numbness, or weakness. All systems reviewed & are unremarkable except as noted in HPI and below PMFSH Past Medical History Medical History Asthma Hypertension Prediabetes Surgical History Surgical History No history of previous surgery Social History Social History Smoking status: Never smoker Gender identity (if verbalized by the patient): Female Exam Narrative: GENERAL: Well appearing, obese with BMI of 39.9, non-toxic, in no acute distress. HEAD: Normocephalic, atraumatic. NECK: Supple. No adenopathy, no masses. RESPIRATORY: Airway patent, respirations nonlabored. Clear to auscultation bilaterally, no rales, rhonchi, wheezing. CARDIOVASCULAR: Regular rate and rhythm without murmurs, rubs, or gallops. Radial pulses 2+ and equal bilaterally. ABDOMINAL: Soft, no tenderness throughout abdomen, nondistended, no hepatosplenomegaly. Normoactive BS. PELVIC: Normal external genitalia. Very small amount of dark red vaginal bleeding in vaginal vault. No clots noted. Cervix appears normal, os appears closed. No significant discharge. No hemorrhage or pooling of fluid. MUSCULOSKELETAL: Moves all extremities. Strength/ROM intact without gross deformities. SKIN: Warm, dry, normal color. No rashes. NEURO: A&O X3. Speech clear. Cranial nerves II-XII grossly intact. Steady gait. No ataxic movements. No focal neurologic deficits. PSYCHIATRIC: Appropriate mood and affect. Normal interaction. Course Vital Signs Vital signs: Vital Signs Temperature 98.3 F 05/27/23 16:22 Pulse Rate 116 H 05/27/23 16:22 Respiratory Rate 16 05/27/23 16:22 Blood Pressure 166/107 H 05/27/23 16:22 Pulse Oximetry 100 05/27/23 16:22 Oxygen Delivery Room Air 05/27/23 16:22 Temperature 98.3 F 05/27/23 16:22 Pulse Rate 105 H 05/27/23 17:46 Respiratory Rate 19 05/27/23 17:46 Blood Pressure 142/93 H 05/27/23 17:46 Pulse Oximetry 100 05/27/23 17:46 Ox
[2023-05-27] MEDS: POTASSIUM CHLORIDE 20 MEQ ER TABLET 40 MEQ PO (18:21)
[2023-05-27 18:30] LABS: Appearance Urine Clear (Clear); Bilirubin Urine Negative (Negative); Blood Urine Negative (Negative); Color Urine Yellow (Yellow); Glucose Urine UA Negative (Negative); Ketones Urine Negative (Negative); Leukocyte Esterase Ur Negative LEU/UL (Negative); Nitrate Urine Negative (Negative); Protein Urine Negative (Negative); Specific Grav Ur 1.012 (1.001-1.035); Urobilinogen Urine 0.2 mg/dL (<2.0); pH Urine 8.5 (5.0-9.0)
[2023-05-27 18:45] LABS: Add Urine Microscopic? NO
--- NOTE | 2023-05-27 19:15 | PC.NURSE ---
Report received from RADHA Armenta. Assumed care of patient at this time.
[2023-05-27] MEDS: IBUPROFEN 600 MG TABLET PO (19:18)
[2023-05-27] MEDS: ACETAMINOPHEN 500 MG TABLET 1000 MG PO (19:18)
== END 2023-05-27 20:21 | disposition home or self-care (01) ==
PROVIDERS: Emergency Medicine; Emergency Provider Physician Assistant; PCP Internal Medicine
DX: N93.8 Other specified abnormal uterine and vaginal bleeding (principal); E87.6 Hypokalemia; R11.2 Nausea with vomiting, unspecified; J45.909 Unspecified asthma, uncomplicated; I10 Essential (primary) hypertension; R73.03 Prediabetes
CPT/HCPCS: 36415; 80053; 81003; 81025; 83690; 85025; 96361; 96374; 99284; A9270; J2405; J7030

== ENCOUNTER 2023-11-23 14:34 | Outpatient (CLI) | payer OTHER, SELFPAY ==
--- NOTE | ~2023-11-23 | XR_ITS ---
EXAMINATION: XR chest 2V 11/23/2023 14:53 INDICATION: Midline chest pain PROCEDURE: 2 view chest COMPARISON: No prior studies for comparison. FINDINGS: The lungs are clear. The cardiomediastinal silhouette is within normal limits. There are no pleural effusions. There is no pneumothorax suspected. IMPRESSION: 1: NO ACUTE CARDIOPULMONARY DISEASE. Reviewed, dictated and finalized at location A.
[2023-11-23 15:36] LABS: Basophils Percent Auto 0.4 % (0.2-1.2); Eosinophils Absolute Auto 0.1 K/mm3 (0-0.3); Hematocrit 35.9 % (37.0-47.0); Hemoglobin 11.2 g/dL (12.0-15.0); Immature Granulocyte Absolute 0.02 K/mm3 (0.00-0.031); Immature Granulocyte Percent A 0.2 % (0-0.5); Lymphocytes Absolute Auto 2.63 K/mm3 (0.9-3.2); Lymphocytes Percent Auto 32.1 % (18.3-44.2); Mean Corpuscular HGB Conc 31.2 g/dl (32-36); Mean Corpuscular Hemoglobin 23.6 pg (26-34); Mean Corpuscular Volume 75.7 fl (80-100); Mean Platelet Volume 9.3 fl (7.4-10.4); Monocytes Absolute Auto 0.6 K/mm3 (0.1-0.6); Monocytes Percent Auto 6.8 % (2.6-8.5); Neutrophils Absolute Auto 4.9 K/mm3 (1.3-6.7); Neutrophils Percent Auto 59.5 % (45.5-73.1); Platelet Count Result 503 k/mm3 (150-375); Red Blood Count 4.74 M/mm3 (4.2-5.4); Red Cell Distribution Width 16.7 % (11.5-14.5); White Blood Count 8.2 K/mm3 (4.5-10.0)
[2023-11-23 15:52] LABS: D Dimer < 0.27 ug/mL (<0.48)
[2023-11-23 15:54] LABS: Appearance Urine Clear (Clear); Bacteria Urine Rare /hpf; Bilirubin Urine Negative (Negative); Blood Urine Non-Hemolyzed Trace (Negative); Color Urine Dark Yellow (Yellow); Glucose Urine UA Negative (Negative); Hyaline Casts Urine Present /lpf; Ketones Urine Trace mg/dL (Negative); Leukocyte Esterase Ur Negative LEU/UL (Negative); Need Manual Microscopic Reviewed; Nitrate Urine Negative (Negative); Protein Urine 1+ mg/dL (Negative); Specific Grav Ur 1.022 (1.001-1.035); Squamous Epithelial Cell Urine Few /hpf (Few); pH Urine 6.5 (5.0-9.0)
[2023-11-23 15:56] LABS: Add Urine Microscopic? YES
[2023-11-23 16:10] LABS: Erythrocyte Sedimentation Rate 16 mm/hr (0-20)
[2023-11-23 16:12] LABS: Alanine Aminotransferase 17 U/L (6-35); Albumin Level 4.4 g/dL (3.5-5.1); Alkaline Phosphatase 62 U/L (38-126); Anion Gap 6 mmol/L (4-12); Aspartate Amino Transferase 32 U/L (14-36); Bilirubin,Total 0.6 mg/dL (0.2-1.3); Blood Urea Nitrogen 7 mg/dL (7-17); Calcium 9.2 mg/dL (8.4-10.2); Carbon Dioxide 25 mmol/L (22-30); Chloride 107 mmol/L (98-107); Estimated Glomerular Filt Rate > 60; Glucose 96 mg/dL (65-110); Potassium 3.1 mmol/L (3.4-5.0); Sodium 138 mmol/L (137-145)
[2023-11-23 16:16] LABS: Troponin I < 0.012 ng/mL (0.000-0.034)
[2023-11-23 16:19] LABS: Microalbumin Urine Random 133.5 mg/L (0-16.7)
[2023-11-23 16:32] LABS: Creatinine Urine 457.1 mg/dL; MALB Creatinine Ratio 29.2 mg/g (0-30)
[2023-11-23 20:22] LABS: CRP < 0.5 mg/dL (<1.0)
[2023-11-23 22:34] LABS: Hemoglobin A1C 5.5 % (<5.7)
== END 2023-11-23 14:35 | disposition home or self-care (01) ==
LOC: ANHIMG 14:37
PROVIDERS: PCP Internal Medicine; Visit Provider Internal Medicine
DX: R07.89 Other chest pain (principal)
CPT/HCPCS: 36415; 71046; 80053; 81001; 82043; 83036; 84484; 85025; 85380; 85652; 86140; 87086

== ENCOUNTER 2024-10-23 08:22 | Outpatient (CLI) | payer OTHER, SELFPAY ==
--- NOTE | ~2024-10-23 | XR_ITS ---
CHEST RADIOGRAPH, PA AND LATERAL CLINICAL HISTORY: chest pain, COUGH SINCE JULY, CONGESTION . COMPARISON: 11/23/2023 TECHNIQUE: PA and lateral views of the chest. FINDINGS The cardiomediastinal silhouette is enlarged, unchanged. The lungs are clear. Visualized osseous structures and soft tissues are unremarkable. IMPRESSION: No focal infiltrate or effusion. Reviewed, dictated and finalized at location []
--- OUTSIDE RECORDS SUMMARY | 2024-10-23 08:49 | XMS_ITS | Clinical Summary ---
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 Name Role Phone Dennis Rahman MD Primary Care Provider [phone] Allergies Active Allergy Reactions Criticality Noted Date Comments Corticosteroids (Glucocorticoids) Other (See comments) Low 02/12/2024 Lip swelling Lisinopril Cough Low 12/10/2017 Medications albuterol HFA (PROVENTIL HFA,VENTOLIN HFA,PROAIR HFA) 90 mcg/actuation inhaler TAKE 2 PUFFS BY MOUTH FOUR TIMES A DAY NEEDED 1 Active fluticasone propion-salmete roL (Wixela Inhub) 250-50 mcg/dose diskus inhaler 1 Active cloNIDine (CATAPRES) 0.1 mg tablet Take 1 tablet (0.1 mg total) by mouth 3 (three) times a day 2 Active cyclobenzaprine (FLEXERIL) 10 mg tablet Take by mouth 3 (three) times a day as needed 2 Active dicyclomine (BENTYL) 10 mg capsule 4 (four) times a day as needed 1 Active hydroCHLOROthia zide (HYDRODIURIL) 25 mg tablet 1 Active metFORMIN (GLUCOPHAGE) 500 mg tablet Take 1 tablet (500 mg total) by mouth 2 (two) times a day 0 Active omeprazole (PriLOSEC) 20 mg capsule Take 1 capsule (20 mg total) by mouth continuously as needed 0 Active potassium chloride ER 10 mEq CR tablet 2 Active topiramate (TOPAMAX) 25 mg tablet Take 1 tablet (25 mg total) by mouth every evening 2 Active amLODIPine (NORVASC) 10 mg tablet Take 1 tablet (10 mg total) by mouth daily 4 Active atenoloL (TENORMIN) 50 mg tablet Take 1 tablet (50 mg total) by mouth daily 4 Active azelastine (ASTELIN) 137 mcg (0.1 %) nasal spray Administer 1 spray into each nostril 2 (two) times a day Use in each nostril as directed Active losartan (COZAAR) 100 mg tablet Take 1 tablet (100 mg total) by mouth daily Active methylPREDNISol one (Medrol, Sergey,) 4 mg Dosepack follow package directions 1 packet 4 Active spironolactone (ALDACTONE) 25 mg tablet Take 1 tablet (25 mg total) by mouth daily 30 tablet 11 5 09/16/19 26 Active Active Problems Problem Noted Date Diagnosed Date BMI 40.0-44.9, adult 08/08/2024 Overview (08/08/2024): Body mass index 40+ - severely obese Constipation 08/08/2024 Overview (08/08/2024): Constipation Mixed anxiety and depressive disorder 08/08/2024 Overview (08/08/2024): Anxiety depression Other chest pain 03/18/2024 Resistant hypertension 02/12/2024 Dizziness 02/12/2024 Morbid (severe) obesity due to excess calories 0 02/12/2024 Body mass index 40.0-44.9, adult ([facility]) 02/11 Gastroesophageal reflux disease 05/24/2023 Polycystic ovary syndrome 05/24/2023 Prediabetes 05/24/2023 Asthma 07/22/2021 Shortness of breath 07/22/2021 COVID-19 07/22/2021 Encounters Date Type Department Care Team Description 09/16/2024 10:00 AM POTLINE MONITOR Office Visit [facility] Cardiology [address] [place] [address] Yevgeniy Engel MD Resistant hypertension (Primary Dx); Other chest pain 08/08/2024 1:33 PM POTLINE MONITOR - 08/08/2024 2:11 PM POTLINE MONITOR Emergency [address] [address] Upper respiratory tract infection, unspecified type (Primary Dx); Elevated blood pressure reading Discharge Disposition: Discharge to home or self care from Last 3 Months Immunizations Immunization Administration Dates Next Due Influenza, Quadrivalent, Spl it, Preservative Free, Intramuscular 08/09/2019 Surgical History Surgery Date Site/Laterality Comments NO PAST SURGERIES Medical History Medical History Date Comments Chest pain Anxiety and depression Hypertension Asthma Sleep apnea Anemia Family History Medical History Relation Name Comments open heart surgery Son Relation Name Status Comments Father Alive Mother Alive Son Alive Social History Tobacco Use Types Packs/Day Years Used Date Smoking Tobacco: Never Smokeless Tobacco: Never Tobacco Cessation:Counseling Given: Not Answered Personal Safety Answer Date Recorded Have you ever been in or are you currently in a harmful physical or emotional relationship or is someone making you feel afraid or unsafe? Denies 08/08/2024 Comments Unknown Sex and Gender Information Value Date Recorded Sex Assigned at Not on file Legal Sex Female 7:51 AM POTLINE MONITOR Gender Identity Female 02/12/2020 5:20 PM CDT Sexual Orientation Straight 02/12/2020 5: 20 PM CDT Obstetrics History Last Filed Vital Signs Vital Sign Reading Time Taken Comments Blood Pressure 134/98 09/16/2024 10:01 AM POTLINE MONITOR Pulse 88 09/16/2024 10:01 AM POTLINE MONITOR Temperature 37.2 C (98.9 F) 08/08/2024 11:19 AM POTLINE MONITOR Respiratory Rate 18 08/08/2024 2:00 PM POTLINE MONITOR Oxygen Saturation 96% 09/16/2024 10:01 AM POTLINE MONITOR Inhaled Oxygen Concentration - - Weight 118.4 kg (261 lb) 09/16/2024 10:01 AM POTLINE MONITOR Height 167.6 cm (5' 6 ) 09/16/2024 10:01 AM POTLINE MONITOR Body Mass Index 42.13 09/16/2024 10:01 AM POTLINE MONITOR Plan of Treatment Health Maintenance Due Date Last Done Comments Breast Cancer Screening-Mammogram 1984 Cervical Cancer Screening 1984 Depression Screening 1984 Hepatitis C Screening 1984 Varicella Vaccines (1 of 2 - 13+ 2-dose series) 1997 DTaP/Tdap/Td Vaccine (6 - Tdap) 05/17/2001 05/16/2001, 04/18/1990, 04/10/1989, Additional history exists Regular Well Visit/Exam 18-64 2002 Pneumococcal vaccine <65 (1 of 2 - PCV) 2003 Covid-19 Vaccine ( - season) 2024 08/28/2021, 01/24/2021, 12/23/2020 Influenza Vaccine (#1) 2024 05/07/2020, 2018 Hepatitis B Screening Completed 05/16/2001 , 03/13/1997, 01/10/1997 HPV Vaccines Aged Out No longer eligi ble based on patient's age to complete this topic Procedures Procedure Name Priority Date/Time Associated Diagnosis Comments XR CHEST PA LATERAL 2 VIEWS ED 08/08/2024 12:05 PM POTLINE MONITOR EGFR STAT 08/08/2024 11:49 AM POTLINE MONITOR DIFFERENTIAL AUTO STAT 08/08/2024 11: 49 AM POTLINE MONITOR COMPREHENSIVE METABOLIC PANEL STAT 08/08/2024 11:49 AM POTLINE MONITOR CBC WITH AUTO DIFFERENTIAL STAT 08/08/2024 11:49 AM POTLINE MONITOR INFLUENZA A/B, RSV, AND COVID-19 PCR Routine 08/08/2024 11:49 AM POTLINE MONITOR from Last 3 Months Results * XR Chest Pa Lateral 2 Vw (08/08/2024 12:05 PM POTLINE MONITOR) Anatomical Region Laterality Modality Body, Chest N/A Computed Radiogr aphy 08/08/2024 12:3 7 PM POTLINE MONITOR Narrative 08/08/2024 12:39 PM POTLINE MONITOR EXAM DESCRIPTION: XR CHEST PA LATERAL 2 VIEWS REASON FOR STUDY: cough Pt states for the last week to having rhinorrhea, headache, congestion. States on Monday she started coughing and was walking up her stairs when she felt like her throat was closing and felt as if she was unable to breathe. Admits to taking asthma inhalers, laid down and started feeling better. States on Monday while she was driving to coughing again and had the same feeling where she felt like her throat was going to close and she was unable to breathe. Pt admits to taking BP this morning. Pt admits to increased life stressors. TECHNIQUE: Frontal and lateral radiographic view(s) of the chest. COMPARISON: None the FINDINGS: There is borderline cardiomegaly. The pulmonary vasculature and mediastinum are grossly unremarkable. There is no definite evidence of a pneumothorax. There is no definite evidence of pleural effusion. There are mild patchy left basilar airspace opacities. The osseous structures are acutely grossly stable. IMPRESSION: Mild patchy left basilar airspace opacities, which may be related to subsegmental atelectasis versus developing airspace disease. Cardiomegaly. THIS IS AN ELECTRONICALLY VERIFIED FINAL REPORT 08/08/2024 12:39 PM - Electronically signed by Rosette Lenz D.O. PS T: Report ID: [id number] Reading Location: [id number] Procedure Note Rosette Lenz, DO - 08/08/2024 EXAM DESCRIPTION: XR CHEST PA LATERAL 2 VIEWS REASON FOR STUDY: cough Pt states for the last week to having rhinorrhea, headache, congestion.States on Monday she started coughing and was walking up her stairs when she felt like her throat was closing and felt as if she was unable to breathe.Admits to taking asthma inhalers, laid down and started feeling better.States on Monday while she was driving to coughing again and had the samefeeling where she felt like her throat was going to close and she was unable to breathe. Pt admits to taking BP this morning. Pt admits toincreased life stressors. TECHNIQUE: Frontal and lateral radiographic view(s) of the chest. COMPARISON: None the FINDINGS: There is borderline cardiomegaly. The pulmonary vasculature and mediastinum are grossly unremarkable. There is no definite evidence of a pneumothorax. There is no definite evidence of pleural effusion. Thereare mild patchy left basilar airspace opacities. The osseous structures are acutely grossly stable. IMPRESSION: Mild patchy left basilar airspace opacities, which may be related to subsegmental atelectasis versus developing airspace disease. Cardiomegaly. THIS IS AN ELECTRONICALLY VERIFIED FINAL REPORT 08/08/2024 12:39 PM - Electronically signed by Rosette Lenz D.O. PS T: Report ID: [id number] Reading Location: [place] [address] [facility] XR PROCEDURES Final Resul t * Influenza A/B, RSV, and COVID-19 PCR Nasopharyngeal (08/08/2024 11:49 AM POTLINE MONITOR) COVID-19 RNA Negative Negative Influenza A RNA Negative Negative BIBI Influenza B RNA Negative Negative BIBI RSV RNA Negative Negative BIBI Comment: Interpretive data: Testing performed by [facility]. This test is performed using the i-marker Xpert Xpress CoV-2/Flu/RSV plus assay. This is a multiplex, real-time reverse transcriptase PCR assay intended for the qualitative detection of nucleic acid from SARS-CoV-2, influenza A, influenza B, and respiratory syncytial virus. This assay has been cleared by the [place] Food and Drug administration. The performance characteristics have been verified by the [facility]. Results must be considered in the clinical context, and a negative result does not rule out infection. Interpretive Data last revised 2023 Nasopharyngeal 08/08/2024 11 :49 AM POTLINE MONITOR 08/08/2024 11:51 AM POTLINE MONITOR Narrative BIBI - 08/08/2024 12:30 PM POTLINE MONITOR Is the Patient experiencing symptoms consistent with COVID?->Unknown [facility] MICROBIOLOGY - GENERAL OR DERABLES Final Result [facility]IBI [address] [facility] Department of Laboratories [place] [id number] * eGFR (08/08/2024 11:49 AM POTLINE MONITOR) [facility] eGFR 84 >=60 mL/min/1. 73 m2 Comment: Interpretive Data Reference Interval Normal >/= 90 mL/min/1.73m2 Mildly decreased* 60 - 89 mL/min/1.73m2 Mildly to moderately decreased 45 - 59 mL/min/1.73m2 Moderately to severely decreased 30 - 44 mL/min/1.73m2 Severely decreased 15 - 29 mL/min/1.73m2 Kidney Failure < 15 mL/min/1.73m2 *Relative to young adult level Estimated glomerular filtration rate is determined by the 2020 CKD-EPI equation recommended by the National Kidney Foundation (A Unifying Approach to GFR Estimation: Recommendations of the NKF-ASK Task Force on Reassessing the Inclusion of Race in Diagnosing Kidney Disease, JASN 2020). The CKD-EPI equation should not be used for patients with unstable renal function and has not been validated in children and those over 70. Current interpretive data was last reviewed 2021. Blood 08/08/2024 11:4 9 AM POTLINE MONITOR 08/08/2024 11:51 AM POTLINE MONITOR us [facility] BLOOD ORDERABLES Final Re sult [facility]I [address] [facility] [place] [address] * Differential, auto (08/08/2024 11:49 AM POTLINE MONITOR) [facility] Neutrophil abs 5.6 1.5 - 6.5 K/cumm Imm gran abs 0.0 0.0 - 0.1 K/cumm [facility] Lymphocyte abs 3.3 0.8 - 3.3 K/cumm [facility] Monocyte abs 0.8 0.2 - 0.8 K/cumm [facility] Eosinophil abs 0.3 0.0 - 0.5 K/cumm [facility] Basophil abs 0.0 0.0 - 0.1 K/cumm [facility] Neutrophil pct 56.0 % [facility] Comment: Interpretive Data Percent cell count reference ranges are not reported, since discordance with absolute values may lead to misinterpretation of CBC data. Current Interpretive Data was last revised on 2017. Imm gran pct 0.3 % [facility] Comment: Interpretive Data Percent cell count reference ranges are not reported, since discordance with absolute values may lead to misinterpretation of CBC data. Current Interpretive Data was last revised on 2017. Lymphocyte pct 32.9 % [facility] Comment: Interpretive Data Percent cell count reference ranges are not reported, since discordance with absolute values may lead to misinterpretation of CBC data. Current Interpretive Data was last revised on 2017. Monocyte pct 7.6 % [facility] Comment: Interpretive Data Percent cell count reference ranges are not reported, since discordance with absolute values may lead to misinterpretation of CBC data. Current Interpretive Data was last revised on 2017. Eosinophil pct 2.9 % [facility] Comment: Interpretive Data Percent cell count reference ranges are not reported, since discordance with absolute values may lead to misinterpretation of CBC data. Current Interpretive Data was last revised on 2017. Basophil pct 0.3 % [facility] Comment: Interpretive Data Percent cell count reference ranges are not reported, since discordance with absolute values may lead to misinterpretation of CBC data. Current Interpretive Data was last revised on 2017. Blood 08/08/2024 11:4 9 AM POTLINE MONITOR 08/08/2024 11:51 AM POTLINE MONITOR [facility] BLOOD ORDERABLES Final Re sult [facility] [address] [facility] [place] [address] * (ABNORMAL) CBC with auto differential (08/08/2024 11:49 AM POTLINE MONITOR) WBC 10.0(H) 3.8 - 9.9 K/cumm Hgb 10.4(L) 11.9 - 15.5 g/dL [facility] Hct 35.4(L) 35.6 - 45.5 % [facility] Plt 482(H) 150 - 400 K/cumm [facility] MPV 9.2 9.1 - 12.3 fL [facility] RBC 4.84 3.90 - 5.20 M/cumm [facility] MCV 73.1(L) 81.3 - 96.4 fL [facility] MCH 21.5(L) 27.1 - 33.3 pg [facility] MCHC 29.4(L) 32.3 - 35.7 g/dL [facility] RDW CV 18.4(H) 11.1 - 14.9 % [facility] RDW SD 47.8 35.7 - 48.1 fL [facility] NRBC abs 0.00 0.00 - 0.01 K/cumm [facility] Blood 08/08/2024 11:4 9 AM POTLINE MONITOR 08/08/2024 11:51 AM POTLINE MONITOR us [facility] BLOOD ORDERABLES Final Re sult [facility] [address] [facility] [place] [address] * Comprehensive metabolic panel (08/08/2024 11:49 AM POTLINE MONITOR) Sodium 136 135 - 145 mmol/L Potassium, pl 3.8 3.3 - 4.9 mmol/L [facility] Chloride 101 97 - 110 mmol/L [facility] CO2 27 22 - 32 mmol/L [facility] Anion gap 8 2 - 15 mmol/L [facility] BUN 8 6 - 25 mg/dL [facility] Creatinine 0.89 0.60 - 1.10 mg/dL [facility] Glucose 95 70 - 199 mg/dL [facility] Comment: Interpretive Data Fasting glucose >/= 126 mg/dl is diagnostic for diabetes. Fasting is defined as no caloric intake for at least 8 hours. Fasting glucose between 100 mg/dl to 125 mg/dl is diagnostic of prediabetes. In a patient with classic symptoms of hyperglycemia or hyperglycemic crisis, a random glucose >/= 200 mg/dl is diagnostic for diabetes. In the absence of unequivocal hyperglycemia, results should be confirmed by repeat testing. The classification and Diagnosis of Diabetes Diabetes Care 202; 46: S19-S40. Current interpretive data was last revised 2022. Calcium 10.0 8.5 - 10.3 mg/dL [facility] Bilirubin, total 0.3 0.1 - 1.2 mg/dL [facility] Protein, pl 8.2 6.5 - 8.5 g/dL [facility] Albumin 4.3 3.5 - 5.0 g/dL [facility] Alk phos 52 40 - 130 Units/L [facility] ALT 15 7 - 45 Units/L [facility] AST 25 10 - 45 Units/L [facility] Blood 08/08/2024 11:4 9 AM POTLINE MONITOR 08/08/2024 11:51 AM POTLINE MONITOR us [facility] BLOOD ORDERABLES Final Re sult [facility] [place] [address] [facility] [place] [address] from Last 3 Months Insurance [facility] Care Teams Vault Mechanic Relationship Specialty Start Date End Date Dennis Rahman MD [address] [facility] [address] [place] [address] PCP - General 09/25/20
--- OUTSIDE RECORDS SUMMARY | 2024-10-23 08:49 | XMS_ITS | Referral Summary ---
Author Organization [facility] Virtual Care Address [address] [place] [phone] Phone Care Team Providers Care General Car Supervisor Yard Name Role Phone Dennis Rahman MD Primary Care Provider [phone] Encounters Date Type Department Care Team Description 09/16/2024 10:00 AM CPS TEAM LEAD Office Visit [facility] Medical Group Cardiology [address] [place] [phone] Yevgeniy Engel MD Resistant hypertension (Primary Dx); Other chest pain 08/08/2024 1:33 PM CPS TEAM LEAD - 08/08/2024 2:11 PM [facility] Emergency [address] [address] Upper respiratory tract infection, unspecified type (Primary Dx); Elevated blood pressure reading Discharge Disposition: Discharge to home or self care from Last 3 Months Allergies Active Allergy Reactions Criticality Noted Date [...] 0 02/12/2024 Body mass index 40.0-44.9, adult ([facility]) 02/11 Gastroesophageal reflux disease 05/24/2023 Polycystic ovary syndrome 05/24/2023 Prediabetes 05/24/2023 Asthma 07/22/2021 Shortness of breath 07/22/2021 COVID-19 07/22/2021 Immunizations Immunization Administration Dates Next Due Influenza, Quadrivalent, Spl it, Preservative Free, Intramuscular 08/09/2019 Social History Tobacco Use Types Packs/Day Years [...] on file Legal Sex Female 7:51 AM CPS TEAM LEAD Gender Identity Female 02/12/2020 5:20 PM CDT Sexual Orientation Straight 02/12/2020 5: 20 PM CDT Last Filed Vital Signs Vital Sign Reading Time Taken Comments Blood Pressure 134/98 09/16/2024 10:01 AM CPS TEAM LEAD Pulse 88 09/16/2024 10:01 AM CPS TEAM LEAD Temperature 37.2 C (98.9 F) 08/08/2024 11:19 AM CPS TEAM LEAD Respiratory Rate 18 08/08/2024 2:00 PM CPS TEAM LEAD Oxygen Saturation 96% 09/16/2024 10:01 AM CPS TEAM LEAD Inhaled Oxygen Concentration - - Weight 118.4 kg (261 lb) 09/16/2024 10:01 AM CPS TEAM LEAD Height 167.6 cm (5' 6 ) 09/16/2024 10:01 AM CPS TEAM LEAD Body Mass Index 42.13 09/16/2024 10:01 AM CPS TEAM LEAD Plan of Treatment Not on file Procedures Procedure Name Priority Date/Time Associated Diagnosis Comments XR CHEST PA LATERAL 2 VIEWS ED 08/08/2024 12:05 PM CPS TEAM LEAD EGFR STAT 08/08/2024 11:49 AM CPS TEAM LEAD DIFFERENTIAL AUTO STAT 08/08/2024 11: 49 AM CPS TEAM LEAD COMPREHENSIVE METABOLIC PANEL STAT 08/08/2024 11:49 AM CPS TEAM LEAD CBC WITH AUTO DIFFERENTIAL STAT 08/08/2024 11:49 AM CPS TEAM LEAD INFLUENZA A/B, RSV, AND COVID-19 PCR Routine 08/08/2024 11:49 AM CPS TEAM LEAD from Last 3 Months Results * XR Chest Pa Lateral 2 Vw (08/08/2024 12:05 PM CPS TEAM LEAD) Anatomical Region Laterality Modality Body, Chest N/A Computed Radiogr aphy 08/08/2024 12:3 7 PM CPS TEAM LEAD Narrative 08/08/2024 12:39 PM CPS TEAM LEAD EXAM DESCRIPTION: XR CHEST PA LATERAL 2 [...] Rosette Lenz D.O. PS T: Report ID: [id number] Reading Location: [place] [address] Procedure Note Yoanna Rosette Matute, DO - 08/08/2024 EXAM DESCRIPTION: XR CHEST [...] Rosette Lenz D.O. PS T: Report ID: [id number] Reading Location: [id number] XR PROCEDURES Final Resul t * Influenza A/B, RSV, and COVID-19 PCR Nasopharyngeal (08/08/2024 11:49 AM CPS TEAM LEAD) COVID-19 RNA Negative Negative Influenza A RNA Negative Negative [facility] NATION Influenza B RNA Negative Negative BIBI RSV RNA Negative Negative BIBI Comment: Interpretive data: Testing performed by [facility]. This test is performed using the [employer] Xpress CoV-2/Flu/RSV plus assay. This is a multiplex, real-time reverse transcriptase PCR assay intended for the qualitative detection of nucleic acid from SARS-CoV-2, influenza A, influenza B, and respiratory syncytial virus. This assay has been cleared by the [place] Food and Drug administration. The performance characteristics have been verified by the [facility]. Results must be considered in the clinical context, and a negative result does not rule out infection. Interpretive Data last revised 2023 Nasopharyngeal 08/08/2024 11 :49 AM CPS TEAM LEAD 08/08/2024 11:51 AM CPS TEAM LEAD Narrative BIBI - 08/08/2024 12:30 PM CPS TEAM LEAD Is the Patient experiencing symptoms consistent with COVID?->Unknown [facility] MICROBIOLOGY - GENERAL OR DERABLES Final Result [facility]IBI [address] [facility] Department [place] [address] * eGFR (08/08/2024 11:49 AM CPS TEAM LEAD) eGFR 84 >=60 mL/min/1. 73 m2 Comment: [...] of Race in Diagnosing Kidney Disease, JASN 202). The CKD-EPI equation should not be used for patients with unstable renal function and has not been validated in children and those over 70. Current interpretive data was last reviewed 2021. Blood 08/08/2024 11:4 9 AM CPS TEAM LEAD 08/08/2024 11:51 AM CPS TEAM LEAD us [facility] BLOOD ORDERABLES Final Re sult [facility]IBI [address] [facility] Department [place] [address] * Differential, auto (08/08/2024 11:49 AM CPS TEAM LEAD) Neutrophil abs 5.6 1.5 - 6.5 K/cumm Imm gran abs 0.0 0.0 - 0.1 K/cumm [facility] Lymphocyte abs 3.3 0.8 - 3.3 K/cumm [facility] Monocyte abs 0.8 0.2 - 0.8 K/cumm [facility] Eosinophil abs 0.3 0.0 - 0.5 K/cumm [facility] Basophil abs 0.0 0.0 - 0.1 K/cumm [facility] Neutrophil pct 56.0 % [facility] Comment: Interpretive Data Percent cell count reference ranges are not reported, since discordance with absolute values may lead to misinterpretation of CBC data. Current Interpretive Data was last revised on 2017. Imm gran pct 0.3 % [facility] Comment: Interpretive Data Percent cell count reference ranges are not reported, since discordance with absolute values may lead to misinterpretation of CBC data. Current Interpretive Data was last revised on 2017. Lymphocyte pct 32.9 % [facility] Comment: Interpretive Data Percent cell count reference ranges are not reported, since discordance with absolute values may lead to misinterpretation of CBC data. Current Interpretive Data was last revised on 2017. Monocyte pct 7.6 % [facility] Comment: Interpretive Data Percent cell count reference ranges are not reported, since discordance with absolute values may lead to misinterpretation of CBC data. Current Interpretive Data was last revised on 2017. Eosinophil pct 2.9 % [facility] Comment: Interpretive Data Percent cell count reference ranges are not reported, since discordance with absolute values may lead to misinterpretation of CBC data. Current Interpretive Data was last revised on 2017. Basophil pct 0.3 % [facility] Comment: Interpretive Data Percent cell count reference ranges are not reported, since discordance with absolute values may lead to misinterpretation of CBC data. Current Interpretive Data was last revised on 2017. Blood 08/08/2024 11:4 9 AM CPS TEAM LEAD 08/08/2024 11:51 AM CPS TEAM LEAD [facility] BLOOD ORDERABLES Final Re sult [address] [address] * (ABNORMAL) CBC with auto differential (08/08/2024 11:49 AM CPS TEAM LEAD) Pathologist [facility] WBC 10.0(H) 3.8 - 9.9 K/cumm Hgb 10.4(L) 11.9 - 15.5 g/dL [facility] Hct 35.4(L) 35.6 - 45.5 % [facility] Plt 482(H) 150 - 400 K/cumm [facility] MPV 9.2 9.1 - 12.3 fL [facility] RBC 4.84 3.90 - 5.20 M/cumm [facility] MCV 73.1(L) 81.3 - 96.4 fL [facility] MCH 21.5(L) 27.1 - 33.3 pg [facility] MCHC 29.4(L) 32.3 - 35.7 g/dL [facility] RDW CV 18.4(H) 11.1 - 14.9 % [facility] RDW SD 47.8 35.7 - 48.1 fL [facility] NRBC abs 0.00 0.00 - 0.01 K/cumm [facility] Blood 08/08/2024 11:4 9 AM CPS TEAM LEAD 08/08/2024 11:51 AM CPS TEAM LEAD [facility] BLOOD ORDERABLES Final Re sult BIBI [address] [place] [address] * Comprehensive metabolic panel (08/08/2024 11:49 AM CPS TEAM LEAD) Sodium 136 135 - 145 mmol/L Potassium, pl 3.8 3.3 - 4.9 mmol/L [facility] Chloride 101 97 - 110 mmol/L [facility] CO2 27 22 - 32 mmol/L [facility] Anion gap 8 2 - 15 mmol/L [facility] BUN 8 6 - 25 mg/dL [facility] Creatinine 0.89 0.60 - 1.10 mg/dL [facility] Glucose 95 70 - 199 mg/dL [facility] Comment: Interpretive Data Fasting glucose >/= 126 [...] classification and Diagnosis of Diabetes Diabetes Care 2021; 46: S19-S40. Current interpretive data was last revised 2022. Calcium 10.0 8.5 - 10.3 mg/dL [facility] Bilirubin, total 0.3 0.1 - 1.2 mg/dL [facility] Protein, pl 8.2 6.5 - 8.5 g/dL [facility] Albumin 4.3 3.5 - 5.0 g/dL [facility] Alk phos 52 40 - 130 Units/L [facility] ALT 15 7 - 45 Units/L [facility] AST 25 10 - 45 Units/L [facility] Blood 08/08/2024 11:4 9 AM CPS TEAM LEAD 08/08/2024 11:51 AM CPS TEAM LEAD us [facility] BLOOD ORDERABLES Final Re sult [facility] [address] [facility] Department [place] [address] from Last 3 Months Insurance [facility] [place] [place] [phone] [facility] Care Teams General Car Supervisor Yard Relationship Specialty Start Date End Date Dennis Rahman MD [address] [facility] [address] [place] [address] PCP - General 09/25/20
--- OUTSIDE RECORDS SUMMARY | 2024-10-23 08:49 | XMS_ITS | Encounter Summary ---
Author Organization [facility] Healthcare Address [address] [place] [address] Care Team Providers Care Wheel Shop Supervisor Name Role Phone Dennis Rahman MD Primary Care Provider Encounter Details Date Type Department Care Team (Late st Contact Info) Description 11/23/2023 Orders Only [facility] Health Information Management [address] [place] [phone] Scanning, Provider Social History Tobacco Use Types Packs/Day Years Used Date Smoking Tobacco: Unknown Comments Unknown Sex and Gender Information Value Date Recorded Sex Assigned at Not on file Legal Sex Female 7:51 AM CREDIT SUPPORT SPECIALIST Gender Identity Female 02/12/2020 5:20 PM CDT Sexual Orientation Straight 02/12/2020 5: 20 PM CDT documented as of this encounter Plan of Treatment Not on file documented as of this encounter Procedures Procedure Name Priority Date/Time Associated Diagnosis Comments SCAN - RADIOLOGY/IMAGING 11/23/2023 documented in this encounter Results * SCAN - RADIOLOGY/IMAGING (11/23/2023) Anatomical Region Laterality Modality Other us Provider Scanning Final Result documented in this encounter Visit Diagnoses Not on filedocumented in this encounter Additional Health Concerns Infection Onset Date Last Indicated Resolved Time COVID: Suspected 08/08/2024 08/08/2024 08/08/2024 12:31 PM CREDIT SUPPORT SPECIALIST documented as of this encounter Care Teams Wheel Shop Supervisor Relationship Specialty Start Date End Date Dennis Rahman MD [address] [facility] [address] [place] [address] PCP - General 09/25/20 documented as of this encounter
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
--- OUTSIDE RECORDS SUMMARY | 2024-10-23 08:49 | XMS_ITS | Data Portability ---
Author Organization [place] [facility], [facility] Address [address] [facility] [address] [place] [address] Assessment No assessment recorded. Plan of Treatment Reminders Order Date Submit Date Provider Last Modified By Organization Details Last Modified Time Details Appointments Follow Up 15 2024 11:00A M Dennis Rahman MD Not available Not available Not available Follow Up 15 2024 09:30A M Dennis Rahman MD Not available Not available Not available Lab BMP, serum or plasma 2024 025 [facility] (Lab), [address] [place] [address], [id number], 10/17/2024 06:12:49 ferritin, serum or plasma 2024 025 [facility] (Lab), [address] [place] [address], [phone], 10/17/2024 06:12:48 folate, serum 2024 025 [facility] (Lab), [address] [place] [address], [id number], 10/17/2024 06:12:48 iron + total iron-bind ing capacity (TIBC), serum 2024 025 [facility] (Lab), [address] [place] [address], [id number], 10/17/2024 06:12:48 retic count, blood 2024 025 [facility] (Lab), [address] [place] [address] [address], [place], [address], 10/17/2024 06:12:48 vitamin B12, serum [address] [place] [address] (Lab), [address] [place] [address] [address] [facility], [place], [address], 10/17/2024 06:12:49 CBC w/ auto diff [address] [place] [address] (Lab), [address] [place] [address] [address], [place], [address], 09/23/2024 17:52:47 CMP, serum or plasma [address] [place] [address] (Lab), [address] [place] [address], [address], 09/11/2024 04:03:17 urinalysi s complete, reflex culture [address] [place] [address] (Lab), [address] [place] [address], [address], 09/11/2024 04:03:18 C-reactiv e protein, quantitat ioana, serum or plasma [address] [place] [address] (Lab), [address] [place] [address], [address], 09/11/2024 04:03:18 HbA1c (hemoglob in A1c), blood [address] [place] [address] (Lab), [address] [place] [address], [address], 09/11/2024 04:03:17 microalbu min/creat inine, mass ratio, urine [address] [place] [address] (Lab), [address] [place] [address], [address], 09/11/2024 04:03:17 D-dimer, quant, plasma 2023 024 [facility] (Lab), [address] [place] [address], [id number], 06/02/2024 05:01:02 ESR (erythroc yte sedimenta tion rate), blood 2023 024 [facility] (Lab), [address] [place] [address], [id number], 06/02/2024 05:01:03 unlisted lab - troponin baseline 2023 024 [facility] (Lab), [address] [place] [address], [id number], 06/02/2024 05:01:03 CBC w/ auto diff 2023 024 [facility] (Lab), [address] [place] [address], [id number], 06/02/2024 05:01:02 CMP, serum or plasma 2023 024 [facility] (Lab), [address] [place] [address], [id number], 06/02/2024 05:01:03 C-reactiv e protein, quantitat ioana, serum or plasma 2023 024 [facility] (Lab), [address] [place] [address], [address], 06/02/2024 05:01:02 urinalysi s complete, reflex culture 2023 024 [facility] (Lab), [address] [place] [address], [address], 06/02/2024 05:01:02 HbA1c (hemoglob in A1c), blood 2023 024 [facility] (Lab), [address] [facility] [address], [place], [address], 06/02/2024 05:01:03 microalbu min/creat inine, mass ratio, urine 2023 024 [facility] (Lab), [address], [place], [address], 06/02/2024 05:01:03 CMP, serum or plasma 2023 024 [facility] Not available 03/03/2024 05:00:57 urinalysi s complete, reflex culture 2023 024 [facility] Not available 03/03/2024 05:00:57 microalbu min/creat inine, mass ratio, urine 2023 024 [facility] Not available 03/03/2024 05:00:57 CBC w/ auto diff 2023 024 [facility] Not available 03/03/2024 05:00:57 lipid panel, serum 2023 024 [facility] Not available 03/03/2024 05:00:57 HbA1c (hemoglob in A1c), blood 2023 024 [facility] Not available 03/03/2024 05:00:57 Referral cardiolog ist referral 2023 024 [facility], [address] [facility] [address], [place], [address], 07/07/2024 05:01:13 Procedures None recorded. Surgeries None recorded. Imaging home sleep study 2024 025 [email or web address], [email or web address], [address], [place], [address], 10/11/2024 14:57:07 US, echocardi ogram, transthor acic, complete, w/ color flow - murmu and chest pain 2023 024 [facility], [address], [place], [address], 2024 05:01:20 XR, chest, 2 view 2023 024 [facility], [address], [place], [address], 06/09/2024 05:01:33 Medication Orders spironola ctone 50 mg tablet 2024 025 [facility] [address] [place], [address], 10/10/2024 11:26:25 Ozempic 0.25 mg or 0.5 mg (2 mg/1.5 mL) subcutane ous pen injector 2024 025 [facility], [address] [place] [address], [address], 10/10/2024 11:26:26 amlodipin e 10 mg tablet 2024 025 [facility], [address] [place], [address], 09/04/2024 11:45:13 atenolol 50 mg tablet 2024 025 [facility], [address] [place], [address], 09/04/2024 11:45:12 clonidine HCl 0.1 mg tablet 2024 025 [facility], [address] [place], [address], 09/04/2024 11:45:13 hydrochlo rothiazid e 25 mg tablet 2024 025 [facility], [address] [place], [address], 09/04/2024 11:45:12 losartan 100 mg tablet 2024 025 [facility], [address] [place] [address], [address], 09/04/2024 11:45:11 Advair Diskus 500 mcg-50 mcg/dose powder for inhalatio n 2024 025 [facility], [address] [place] [address], [address], 09/04/2024 11:45:12 albuterol sulfate HFA 90 mcg/actua tion aerosol inhaler 2024 025 [facility], [address] [place] [address], [address], 09/04/2024 11:45:13 Flonase Allergy Relief 50 mcg/actua tion nasal spray,toña pension 2024 025 [facility], [address] [place] [address], [address], 09/04/2024 11:45:13 Zithromax Z-Sergey 250 mg tablet 2024 025 [facility], [address] [place] [address], [address], 10/10/2024 11:18:23 potassium chloride ER 20 mEq tablet,ex tended release 2024 025 [facility], [address] [place] [address], [address], 09/04/2024 11:45:12 omeprazol e 40 mg capsule,d elayed release 2023 024 [facility], [address] [place] [address], [address], 12/07/2023 12:40:01 prednison e 20 mg tablet 2023 025 [facility], [address] [place], [address], 09/04/2024 11:29:00 atenolol 50 mg tablet 2023 024 [facility], [address] [place], [address], 11/23/2023 14:45:54 Patient TargetsNo targets recorded. Patient Instructions Encounter Date Encounter Id Patient Instructions Last Modified By Organization Details Last Modified Time 08/23/2023 [id number] controlling your asthma: care instructions [email or web address] Not available 08/23/2023 13:02:53 learning about asthma [email or web address] Not available 08/23/2023 13:02:53 gastroesophageal reflux disease (GERD): care instructions [email or web address] Not available 08/23/2023 13:02:53 When You Want to Lose Weight: Care Instructions Not available 08/23/2023 13:02:53 upper respirator y infection (cold): care instructions [email or web address] Not available 08/23/2023 13:02:53 11/23/2023 [id number] chest pain: care instructions [email or web address] Not available 11/23/2023 14:45:50 controlling your asthma: care instructions [email or web address] Not available 11/23/2023 14:45:49 learning about asthma [email or web address] Not available 11/23/2023 14:45:49 gastroesophageal reflux disease (GERD): care instructions [email or web address] Not available 11/23/2023 14:45:49 When You Want to Lose Weight: Care Instructions Not available 11/23/2023 14:45:49 12/07/2023 [id number] chest pain: care instructions [email or web address] Not available 12/07/2023 12:39:58 gastroesophageal reflux disease (GERD): care instructions [email or web address] Not available 12/07/2023 12:39:58 When You Want to Lose Weight: Care Instructions [email or web address] Not available 12/07/2023 12:39:58 09/04/2024 [id number] When You Want to Lose Weight: Care Instructions [email or web address] Not available 09/04/2024 11:45:02 gastroesophageal reflux disease (GERD): care instructions [email or web address] Not available 09/04/2024 11:45:02 chest pain: care instructions [email or web address] Not available 09/04/2024 11:45:02 10/10/2024 [id number] When You Want to Lose Weight: Care Instructions [email or web address] Not available 10/10/2024 11:26:19 gastroesophageal reflux disease (GERD): care instructions [email or web address] Not available 10/10/2024 11:26:20 anemia: care instructions [email or web address] Not available 10/10/2024 11:26:19 chest pain: care instructions [email or web address] Not available 10/10/2024 11:26:19 hypokalemia: car e instructions [email or web address] Not available 10/10/2024 11:26:20 I spent a total of ___35___ minutes (excluding separately reportable procedure time ) in care of this patient. [email or web address] Not available 10/10/2024 11:25:15 Reason for Referral [employer] Referral for Ch est pain Referring Physician: Dennis Rahman, Internal Medicine, Encounter Date: 12/07/2023 Results Created Date Observation Date Name Description Value Unit Range Abnormal Flag Note LastModifiedBy Organization Detail LastModifiedTime 11/23/19 24 lubna wallace am No observ ation record ed. [address] [facility] [address], [place], [address], 12/07/2023 12:24:12 Result Notes None recorded. Problems Name Problem SNOMED Code Status Onset Date Resolution Date Notes Provider Name and Address Organization Details Recorded Time Body mass index 40+ - severely obese 669408144 Completed 05/24/2023 Body mass index 40+ - severely obese Dennis Rahman MD [address] [facility] [address], [place], [address] , [facility] 16:20:04 Abnormal weight gain 222508904 Completed 05/24/2023 Abnormal weight gain Dennis Rahman MD [address], [place], [address] , [facility] 3 16:20:19 Acute COVID-19 2096467072 Completed 05/24/2023 Acute COVID-19 Dennis Rahman MD [address], [place], [address] , [facility] 3 16:20:06 Neck pain 77603818 Completed 05/24/2023 Painful neck Dennis Rahman MD [address], [place], [address] , [facility] 3 16:17:28 Accident while engaged in work-rel ated activity Completed 05/24/2023 Work accident Dennis Rahman MD [address], [place], [address] , [facility] 3 16:20:08 Sleep apnea 64481766 Active Sleep apnea Not Available [facility] 3 04:04:22 Headache 68247121 Completed 05/24/2023 Headache Dennis Rahman MD [address], [place], [address] , [facility] 3 16:18:12 Asthma 116597447 Active Asthma Not Available [facility] 3 04:04:22 Obesity 300045517 Completed 05/24/2023 Obesity Dennis Rahman MD [address], [place], [address] , [facility] 3 16:17:18 Obese class II [id number] 4105 Completed 05/24/2023 Body mass index 35.00 to 39.99 Dennis Rahman MD [address], [place], [address] , [facility] 3 16:17:25 Hypokale danial 04254872 Active Hypokale danial Not Available [facility] 3 04:04:22 Hyperten sive disorder 09310899 Active Hyperten kalin Not Available [facility] 3 04:04:22 Disorder due to work-rel ated activity accident 61375484 Completed 05/24/2023 Disorder due to work-rel ated activity accident Dennis Rahman MD [address], [place], [address] , [facility] 3 16:20:00 Morbid obesity 533818976 Active Morbid obesity Not Available [facility] 3 04:04:23 Polycyst ic ovaries Completed 05/24/2023 Polycyst ic ovaries Dennis Rahman MD [address], [place], [address] , [facility] 3 16:30:19 Constipa tion 98213158 Completed 05/24/2023 Constipa tion Dennis Rahman MD [address], [place], [address] , [facility] 3 16:20:02 Mixed anxiety and depressi ve disorder 477061154 Active Anxiety depressi on Not Available [facility] 3 04:04:23 Gastroes ophageal reflux disease 295962108 Active 2022 Dennis Rahman MD [address], [place], [address] , [facility] 3 16:23:59 Polycyst ic ovary syndrome 548025980 Active 2022 Dennis Rahman MD [address], [place], [address] , [facility] 3 16:26:26 Prediabe krzysztof 463235605 Active 2022 Dennis Rahman MD [address], [place], [address] , [facility] 3 16:37:10 Acute upper respirat ory infectio n 82511587 Active 2023 Dennis Rahman MD [address] [facility] [address], [place], [address] , [facility] 4 12:49:46 Chest pain 40706613 Active 2023 Dennis Rahman MD [address] [facility] [address], [place], [address] , [facility] 4 14:38:30 Acute urinary tract infectio n 604919592 Active 2023 Dennis Rahman MD [address] [facility] [address], [place], [address] , [facility] 4 16:47:18 Asthmati c bronchit is 363419852 Active 2024 Dennis Rahman MD [address] [facility] [address], [place], [address] , [facility] 5 11:35:40 Anemia 290482816 Active 2024 Dennis Rahman MD [address] [facility] [address], [place], [address] , [facility] 5 17:52:59 Problem Notes None recorded. Procedures Surgical History None recorded. Imaging Results Imaging Date Name Status LastModified by Organization Details LastModified Time 11/23/2023 electrocardiogram completed [address] [facility] [address], [place], [address], 12/07/2023 12:24:12 Procedure Notes None recorded. Medical Equipment None Reported. Medications Name Sig Start Date Stop Date Status Note LastModified by Organization Details LastModified Time cyclobenzap rine 10 mg tablet TAKE 1 TABLET BY MOUTH THREE TIMES A DAY NEEDED active Not Available Not Available No t Available metformin 500 mg tablet TAKE 1 TABLET BY MOUTH TWICE A DAY 09/04 completed Not Available Not Available Not Available clonidine HCl 0.1 mg tablet TAKE 1 TABLET BY MOUTH THREE TIMES A DAY active Not Available Not Available No t Available doxycycline hyclate 100 mg capsule TAKE 1 TABLET/CA PSULE (100 MG TOTAL) BY MOUTH 2 (TWO) TIMES A DAY FOR 5 DAYS 09/04 completed Not Available Not Available Not Available azithromyci n 250 mg tablet TAKE 2 TABLETS BY MOUTH TODAY, THEN TAKE 1 TABLET DAILY FOR 4 DAYS DIRECTED 10/10 completed Not Available Not Available Not Available prednisone 20 mg tablet TAKE 2 TABLETS BY MOUTH EVERY DAY FOR 5 DAYS 09/04 completed Not Available Not Available Not Available topiramate 25 mg tablet TAKE 1 TABLET BY MOUTH EVERY DAY IN THE EVENING 11/22 completed Not Available Not Available Not Available potassium chloride ER 10 mEq tablet,exte nded release TAKE 1 TABLET BY MOUTH EVERY DAY WITH FOOD 12/06 completed Not Available Not Available Not Available amlodipine 5 mg tablet Take 2 tablets every day by oral route. 08/23 completed Not Available Not Available Not Available omeprazole 40 mg capsule,del ayed release TAKE 1 CAPSULE BY MOUTH EVERY DAY active Not Available Not Available No t Available spironolact one 25 mg tablet TAKE 1 TABLET (25 MG TOTAL) BY MOUTH DAILY. active Not Available Not Available No t Available baclofen 10 mg tablet TAKE 1 TABLET THREE TIMES A DAY NEEDED FOR MUSCLE PAIN 09/04 completed Not Available Not Available Not Available amlodipine 10 mg tablet TAKE 1 TABLET BY MOUTH EVERY DAY active Not Available Not Available No t Available ferrous sulfate 325 mg (65 mg iron) tablet TAKE 1 TABLET BY MOUTH EVERY DAY active Not Available Not Available No t Available fluticasone 500 mcg-salmete rol 50 mcg/dose blistr powdr for inhalation INHALE 1 PUFF INTO THE LUNGS TWICE A DAY active Not Available Not Available No t Available omeprazole 20 mg capsule,del ayed release TAKE 1 CAPSULE BY MOUTH EVERY DAY 30 MINUTES BEFORE MORNING MEAL 09/04 completed Not Available Not Available Not Available cephalexin 500 mg tablet TAKE 1 TABLET BY MOUTH TWICE A DAY FOR 5 DAYS 09/04 completed Not Available Not Available Not Available montelukast 10 mg tablet TAKE 1 TABLET BY MOUTH EVERY DAY IN THE EVENING FOR 30 DAYS active Not Available Not Available No t Available hydrochloro thiazide 25 mg tablet TAKE 1 TABLET BY MOUTH EVERY DAY active Not Available Not Available No t Available azelastine 137 mcg (0.1 %) nasal spray INSTILL 1 SPRAY TWICE A DAY INTO EACH NOSTRIL active Not Available Not Available No t Available ibuprofen 600 mg tablet TAKE 1 TABLET ORALLY THREE TIMES A DAY NEEDED FOR FEVER OR PAIN active Not Available Not Available No t Available methylpredn isolone 4 mg tablets in a dose pack TAKE 6 TABLETS ON DAY 1 DIRECTED ON PACKAGE AND DECREASE BY 1 TAB EACH DAY FOR A TOTAL OF 6 DAYS 09/04 completed Not Available Not Available Not Available albuterol sulfate HFA 90 mcg/actuati on aerosol inhaler INHALE 2 PUFFS BY MOUTH EVERY 6 HOURS NEEDED active Not Available Not Available No t Available ondansetron 4 mg disintegrat ing tablet TAKE 1 TABLET (4 MG) ORALLY EVERY 8 HOURS NEEDED FOR NAUSEA AND VOMITING active Not Available Not Available No t Available losartan 100 mg tablet TAKE 1 TABLET BY MOUTH EVERY DAY active Not Available Not Available No t Available fluticasone propionate 50 mcg/actuati on nasal spray,suspe nsion SPRAY 1 SPRAY BY INTRANASA L ROUTE TWICE A DAY active Not Available Not Available No t Available dicyclomine 10 mg capsule TAKE 1 CAPSULE BY MOUTH THREE TIMES A DAY 2024 active Not Available Not Available Not Avai lable atenolol 50 mg tablet TAKE 1 TABLET BY MOUTH EVERY DAY active Not Available Not Available No t Available spironolact one 50 mg tablet Take 1 tablet every day by oral route. active Not Available Not Available No t Available Klor-Con M20 mEq tablet,exte nded release active Not Available Not Available Not Available topiramate 50 mg tablet TAKE 1 TABLET BY MOUTH EVERY DAY IN THE EVENING 09/04 completed Not Available Not Available Not Available eszopiclone 3 mg tablet TAKE 1 TABLET BY MOUTH 45-60 MINUTES PRIOR TO SLEEP STUDY Oral for 1 05/24 completed Not Available Not Available Not Available potassium chloride ER 20 mEq tablet,exte nded release Take 1 tablet twice a day by oral route for 30 days. 2024 active Not Available Not Available Not Avai lable Ozempic 0.25 mg or 0.5 mg (2 mg/1.5 mL) subcutaneou s pen injector active Not Available Not Available Not Available Wixela Inhub 250 mcg-50 mcg/dose powder for inhalation Inhale 1 puff twice a day by inhalatio n route. 09/04 completed Not Available Not Available Not Available Vitals Date Recorded Body height Provider Name an d Address Organization Details Last Updated DateTime 09/04/2024 167.64 [facility] 11:00:37 Date Recorded Body temperature Body mass index (BMI) Body weight Heart rate Respiratory rate Oxygen saturation Oxygen saturation in Arterial blood by Pulse oximetry Systolic blood pressure Diastolic blood pressure Provider Name and Address Organization Details Last Updated DateTime 5 98.2 [degF] 42.3 kg/m2 277524. 2 g 97 /min 20 /min 99 % 99 % 138 mm[Hg] 98 mm[Hg] Dennis Rahman MD [address] [facility] [address], [place], [address], [facility] 5 11:06:23 Date Recorded Body height Body mass index (BMI) Body weight Body temperature Heart rate Oxygen saturation Oxygen saturation in Arterial blood by Pulse oximetry Respiratory rate Systolic blood pressure Diastolic blood pressure Provider Name and Address Organization Details Last Updated DateTime 5 167.64 cm 42 kg/m2 642509. 02 g 98.3 [degF] 91 /min 98 % 98 % 17 /min 155 mm[Hg] 100 mm[Hg] Lore Hurst [facility] 5 10:43:29 Date Recorded Body height Body temperature Body mass index (BMI) Body weight Heart rate Respiratory rate Oxygen saturation Oxygen saturation in Arterial blood by Pulse oximetry Systolic blood pressure Diastolic blood pressure Provider Name and Address Organization Details Last Updated DateTime 4 167.64 cm 97.2 [degF] 39.9 kg/m2 802050. 32 g 105 /min 18 /min 95 % 95 % 160 mm[Hg] 92 mm[Hg] Gracie Andrade [facility] 4 14:29:38 Date Recorded Body height Body temperature Body mass index (BMI) Body weight Heart rate Respiratory rate Oxygen saturation Oxygen saturation in Arterial blood by Pulse oximetry Systolic blood pressure Diastolic blood pressure Provider Name and Address Organization Details Last Updated DateTime 4 167.64 cm 98.4 [degF] 40.5 kg/m2 741551. 68 g 90 /min 16 /min 100 % 100 % 122 mm[Hg] 72 mm[Hg] Gracie Andrade [facility] 12:08:00 Social History None recorded. Functional Status None recorded. Mental Status None recorded. Family History Nothing Reported Notes:grandmother-hypertensi on,asthma FamilyHistoryDetails: COMMENTS:0 brother(s) , 0 sister(s) . 0 son(s) , 0 daughter(s) Migrated Family History: Notes: : grand mother: hypertension, asthma NOTE: Notes: grandmother: Hypertension, asthma Medical History No medical history recorded. Gynecological HistoryNo gynecological history recorded. Obstetrics History GPAL:G 0 P 0 0 0 0 Immunizations Vaccine Type Date Status Note Provider Nam e and Address Organization Details Recorded Time MMR 6 completed Dennis Rahman MD [address] [facility] [address], [place], [address], [facility] 08/23/2023 12:52:24 MMR 0 completed Dennis Rahman MD [address] [facility] [address], [place], [address], [facility] 08/23/2023 12:52:24 DTP 5 completed Dennis Rahman MD [address] [facility] [address] [address], [place], [address], [facility] 08/23/2023 12:52:24 DTP 5 completed Dennis Rahman MD [address] [facility] [address], [place], [address], [facility] 08/23/2023 12:52:24 DTP 9 completed MD Alondra Ferguson[address] [facility] [address], [place], [address], [facility] 08/23/2023 12:52:24 DTP 0 jovita Rahman MD [address] [facility] [address], [place], [address], [facility] 08/23/2023 12:52:24 DTP 5 completed MD Alondra Ferguson[address], [place], [address], [facility] 08/23/2023 12:52:24 OPV 5 completed MD Alondra Ferguson[address], [place], [address], [facility] 08/23/2023 12:52:24 OPV 5 completed MD Charles [address], [place], [address], [facility] 08/23/2023 12:52:24 OPV 9 completed MD Charles [address], [place], [address], [facility] 08/23/2023 12:52:24 OPV 0 completed MD Charles [address], [place], [address], [facility] 08/23/2023 12:52:24 Novel [id number], nasal 9 completed MD Charles [address], [place], [address], [facility] 08/23/2023 12:52:24 Td (adult), 2 Lf tetanus toxoid, preservative free, adsorbed 1 completed MD Charles [address], [place], [address], [facility] 08/23/2023 12:52:24 Hep B, adolescent or pediatric 7 completed MD Charles Ferguson [address], [place], [address], [facility] 08/23/2023 12:52:24 Hep B, adolescent or pediatric 7 completed Dennis Rahman MD [address], [place], [address], [facility] 08/23/2023 12:52:24 Hep B, adolescent or pediatric 1 completed Dennis Rahman MD [address], [place], [address], [facility] 08/23/2023 12:52:24 Hep A, pediatric, unspecified formulation 1 completed Dennis Rahman MD [address], [place], [address], [facility] 08/23/2023 12:52:24 Influenza, split virus, quadrivalent, PF 9 completed Dennis Rahman MD [address], [place], [address], [facility] 08/23/2023 12:52:24 Influenza, recombinant, quadrivalent, PF 0 completed [facility] 14:29:49 COVID-19, mRNA, LNP-S, PF, 100 mcg/0.5mL dose or 50 mcg/0.25mL dose 2 completed [facility] 11/23/2023 14:29:49 COVID-19, mRNA, LNP-S, PF, 100 mcg/0.5mL dose or 50 mcg/0.25mL dose 1 completed [facility] 11/23/2023 14:29:49 COVID-19, mRNA, LNP-S, PF, 100 mcg/0.5mL dose or 50 mcg/0.25mL dose 1 completed [facility] 11/23/2023 14:29:49 Past Encounters Encounter ID Performer Location Encounter Start Date Encounter Closed Date Diagnosis/Indication Diagnosis SNOMED-CT Code Diagnosis ICD10 Code Diagnosis Note [id number] [facility] [address] [place] [address] 05/24/2023 15:37:40 05/24/2023 16:48:12 Hypertensive disorder 29902514 I10 on amlod, hctz, clonidine, losartanbp not fawqmtp857 /100reprot s blood pressure at home is normal. always normalwill continue curent medicaiton s. 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 [address] [place] [address] 08/23/2023 12:34:23 08/23/2023 13:57:38 Hypertensive disorder 59407634 I10 on amlod, hctz, clonidine, losartanbp not ixvnuga191 /100report s blood pressure at home is normal. 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 [address] [place] [address] 11/23/2023 13:54:10 11/23/2023 14:50:57 Hypertensive disorder 26660340 I10 on amlod, hctz, clonidine, losartanbp not excsxli659 /100report s blood pressure at home is normal. always normal at homeadd atenolol 50 mg daily Prediabetes 418899089 R7 3.03 a1c 6.0 : 5.7 Asthma 014141920 J45.90 9 well controlled on wixela, albuterol prn, montelukas t Sleep apnea 26300945 G47 .30 follows with sleep specialist and currently ordered on cpap but she is not currently using it because fo mask problemshe gets it from [facility] sleep study 09/2021: mild sleep apnea AHI 6.4 Morbid obesity 536910430 E66.01 used to be on phentermin e and Topamaxsto pped phentermin e due to blood pressureon ly on topamax currenltyd iet an dphysical activity doinggetti ng started on gym Mixed anxi ety and depressive disorder 368165689 F41.8 now controlled Hypokalemia 30671731 E87 .6 on potassium supplement Gastroesop hageal reflux disease 562293634 K21.9 omeprazole Polycystic ovary syndrome 656575819 E28.2 testostero ne level high.start ed on metforminm enstrual irregulari ites has resovled nowsees gynecologi st Preventive procedure 169 860387 Z29.9 mammogram: neverPap smear: 05/23/2023 by gynecology flu: 2019pneumo carolyn: nevercovid : never Chest pain 27666994 R07. 9 [address] t changesche st wall tenderness seems costochond ritiswill give ac ourse of prednisone [id number] Dennis Rahman MD [facility] [address] [place] [address] 12/07/2023 11:30:54 12/07/2023 12:44:02 Chest pain 50429971 R07.9 ekg with nonspecifi c st t changesche st wall tenderness seems costochond ritisstill chest pain present on and off.cxr negatived dimer negativetr oponin negative.v olteran gel and patch biofreezep rednisone did not help much.on ibuprofen as neededhx of congenital heart disease in her son.will get echo. does have some murmurcard iology referral Hypertensive disorder 38 087625 I10 on amlod, hctz, clonidine, losartanbp not rlizuyj252 /100report s blood pressure at home is normal. always normal at homeadd atenolol 50 mg daily and improved bp today Prediabetes 564158088 R7 3.03 a1c 6.0 /23: 5.74/24: 5.5. uac negative Asthma 724606939 J45.90 9 well controlled on wixela, albuterol prn, montelukas t Sleep apnea 03599112 G47 .30 follows with sleep specialist and currently ordered on cpap but she is not currently using it because fo mask problemshe gets it from [facility] sleep study 09/2021: mild sleep apnea AHI 6.4 Morbid obesity 037403234 E66.01 used to be on phentermin e and Topamaxsto pped phentermin e due to blood pressureon ly on topamax currenltyd iet an dphysical activity doinggetti ng started on gym Mixed anxi ety and depressive disorder 354629649 F41.8 now controlled Hypokalemia 69696517 E87 .6 on potassium supplement k lowwill increaese to 20 meq daily Gastroesop hageal reflux disease 481799277 K21.9 omeprazole will increase to 40 meq daily Polycystic ovary syndrome 230318956 E28.2 testostero ne level high.start ed on metforminm enstrual irregulari ites has resovled nowsees gynecologi st Preventive procedure 169 498833 Z29.9 mammogram: neverPap smear: 05/23/2023 by gynecology flu: 2019pneumo carolyn: nevercovid : never [id number] Dennis MD [facility] [address] [place] [address] 09/04/2024 10:35:33 09/04/2024 11:47:47 Chest pain 00806030 R07.9 e[address]ifi c st t changesche st wall tenderness seems costochond ritisstill chest pain present on and off.cxr negatived dimer negativetr oponin negative.v olteran gel and patch biofreezep rednisone did not help much.on ibuprofen as neededhx of congenital heart disease in her son.she does have some murmurcard iology referralec ho per cardiology unremarkab le Hypertensive disorder 38 284060 I10 on amlod, hctz, clonidine, losartanbp not [id number] /100report s blood pressure at home is normal. always normal at homeadd atenolol 50 mg daily Prediabetes 624147862 R7 3.03 a1c 6.0 /23: 5.74/24: 5.5. uac negativewa s on metformin now stopped Asthma 561359520 J45.90 9 well controlled on wixela, albuterol prn, montelukas t Sleep apnea 18272756 G47 .30 follows with sleep specialist and currently ordered on cpap but she is not currently using it because fo mask problemshe gets it [facility] 09/20[facility]: mild sleep apnea AHI 6.4 Morbid obesity 346707779 E66.01 used to be on phentermin e and Topamaxsto pped phentermin e due to blood pressureon ly on topamax currenltyd iet an dphysical activity doinggetti ng started on gymnot on any medication s Mixed anxi ety and depressive disorder 555580870 F41.8 now controlled Hypokalemia 90163746 E87 .6 on potassium supplement k lowincreas ed to 20 meq daily Gastroesop hageal reflux disease 275169458 K21.9 omeprazole will increase to 40 meq daily Polycystic ovary syndrome 878817777 E28.2 testostero ne level high.start ed on metforminm enstrual irregulari ites has resovled nowsees gynecologi st Preventive procedure 169 533433 Z29.9 mammogram: neverPap smear: 05/23/2023 by gynecology flu: 2019pneumo carolyn: nevercovid : never Asthmatic bronchitis 405 918663 J45.909 cxr with left basal airspace disease.wa s treated with medrol dose sergey and doxycyline .still persistent cough.will add flonase nasal spray. will give a course of zpak.she was tested negative for flu, rsv and covid 08/06 [id number] [facility] [address] [place] [address] 10/10/2024 10:27:42 10/10/2024 11:28:50 Anemia 246661515 D64.9 hb down to 9.5 09/07 from 11.2 12/05microc ytic anemiaheav ier periodua is negative for hematuriaa dd ferrous sulfatelab s reordered and she will get this done. Hypokalemia 96572725 E87 .6 on potassium supplement k lowincreas ed to 20 meq dailyreech k labs since she is now on spironlact one Asthmatic bronchitis 405 526328 J45.909 cxr with left basal airspace disease.wa s treated with medrol dose sergey and doxycyline .still persistent cough.will add flonase nasal spray. will give a course of zpak.she was tested negative for flu, rsv and covid 08/06bette r but still has some coughlikel y from undelrying asthma as well. Chest pain 04627999 R07. [address] c [address] t changesche st wall tenderness seems costochond ritisstill chest pain present on and off.cxr negatived dimer negativetr oponin negative.v olteran gel and patch biofreezep rednisone did not help much.on ibuprofen as neededhx of congenital heart disease in her son.she does have some murmurcard iology referralec ho per cardiology unremarkab le Hypertensive disorder 38 241107 I10 on amlod, hctz, clonidine, losartan, spironolac tonebp not optimalrep orts blood pressure at home is normal. always normal at homeadd atenolol 50 mg dailycardi ology started recently on spironolac ton e25 mg dailywill incresase to 50 mg dailyreehc k bmp Prediabetes 088359403 R7 3.03 a1c 6.0 /: 5.74/24: 5.5. uac negativewa s on metformin now stopped08/15 5: 6.0discuss ed ozempic and will order that if covered Asthma 525998402 J45.90 9 well controlled on wixela, albuterol prn, montelukas t Sleep apnea 00586597 G47 .30 follows with sleep specialist and currently ordered on cpap but she is not currently using it because fo mask problemshe [facility]: mild sleep apnea AHI 6.4with resistant hypertenio n, will reassess her sleep apnea.will reorder sleep apnea testing Morbid obesity 050999203 E66.01 used to be on phentermin e and Topamaxsto pped phentermin e due to blood pressureon ly on topamax currenltyd iet an dphysical activity doinggetti ng started on gymnot on any medication s Mixed anxi ety and depressive disorder 017485748 F41.8 now controlled Gastroesop hageal reflux disease 521940210 K21.9 omeprazole will increase to 40 meq daily Polycystic ovary syndrome 901118538 E28.2 testostero ne level high.start ed on metforminm enstrual irregulari ites has resovled nowsees gynecologi st Preventive procedure 169 067027 Z29.9 mammogram: neverPap smear: 05/23/2023 by gynecology flu: 2019pneumo carolyn: nevercovid : never Health Concerns Section Related Observation LastModified by Organization Detai ls LastModified Time None Recorded Concern Status LastModified by Organization Details LastModified Time None Recorded Advance Directives Directive None Recorded Payers Encounter Date Sequence Insurance Name Policy Number Policy Brink Covered Member ID Brink Member ID Guarantor Name 08/23/2023 2 [facility] ON OR AFTER 02/11/21 (MEDICAID REPLACEMENT - HMO) Tracey Sabillon [id number] Tracey Sabillon 11/23/2023 2 [facility] ON OR AFTER 02/11/21 (MEDICAID REPLACEMENT - HMO) Tracey Sabillon [id number] Tracey Sabillon 12/07/2023 2 [facility] ON OR AFTER 02/11/21 (MEDICAID REPLACEMENT - HMO) Tracey Sabillon [id number] Tracey Sabillon 09/04/2024 2 [facility] ON OR AFTER 02/11/21 (MEDICAID REPLACEMENT - HMO) Tracey Sabillon [id number] Tracey Sabillon 09/04/2024 1 [facility] [id number] Tracey Sabillon [id number] Tracey Sabillon 10/10/2024 2 [facility] ON OR AFTER 02/11/21 (MEDICAID REPLACEMENT - HMO) Tracey Sabillon [id number] Tracey Sabillon 10/10/2024 1 [facility] [id number] Tracey Sabillon [id number] Tracey Sabillon Notes Date Note Type Note Provider Name and Address Organization Details Recorded Time 08/23/2023 text/html TELEVISIT TEMPLATEReported bypatient.Notes:I performed this visit using real-time telehealth tools, including a (telephone or live video) connection between my location and the patient's location.Prior to initiating the services, I obtained the patient's informed verbal consent to perform this visit using the telehealth tools and answered all the questions the patient had about the telehealth interaction. Originating Site (patient's location): Home Distant Site (provider's location): [facility] Physical Exam information for clinical team: Physical exam, if recorded, is based on patient reported information or obtained through peripheral. Total time spent on medical discussion: 15 minutes the patient is here for 3 months follow up. she reports that she is ahving some sinus and cough and runny nose, upper respiratory symptoms. has not checked for covid but feelig better. did not want to come to expose in case. she is not checking her bp at home regularly but had once checked in the pharmacy and was done it was good. no refills needed. reviewed previous labs. diet and physical activity reviewed. she has not been engaged in phsyical activity or followed any diet. weight is not monitored regularly. no fever, chills. MD Alondra Ferguson[address], [place], [address], [facility] 08/23/2023 13:03:02 11/23/2023 text/html Pt here for 6 mo [facility] follow up. C/O chest pain and shortness of breath today. Has been having chest pain off and on for 1 week. States she has been under alot of stress at home. No nausea or vomiting. MD Charles Ferguson [address], [place], [address], [facility] 11/23/2023 14:46:10 12/07/2023 text/html Pt here for sick visit. C/O nights sweats on Monday night and then Monday she [place] walking in the mall when she began to have chest pain. Chest pain lasted for about 10 minutes. Improved when she sat down. No nausea or vomiting. Needs [facility] papers filled out for her employment. MD Charles Ferguson [address], [place], [address], [facility] 12/07/2023 15:53:36 09/04/2024 text/html Pt was seen in [facility] on 08/08/2024 Dx: URI. Pt completed ABX. C/O still having a constant cough-thick yellow sputum. She has taken OTC cough syrup with no improvement. She is having occasional dizzy spells, shortness of breath and nausea. Denies fever, chest pain, or vomiting. discussed weitght with the patient. bp meds reviewed as the bp is still high. no fever, chills Dennis Rahman MD [address], [place], [address], [facility] 09/04/2024 11:45:39 10/10/2024 text/html Patient is here for 1 month f/u. C/O of cough and congestion ongoing since July. Cough does produce yellow mucus, happens mostly during the day, no fever. No SOB, chest pain, dizziness, nausea or diarrhea. she has asthma, has not seen pulmonary for a while. labs were reviewed during the visit Dennis Rahman MD [address] [facility], [place], [address], [facility] 10/10/2024 14:13:53 OBGyn Episode No OBEpisode recorded.
[2024-10-23 09:19] LABS: Immature Reticulocyte Fraction 11.5 % (3.0-15.9); Reticulocyte Hemoglobin Conten 29.1 pg (28.2-36.6); Reticulocytes Absolute 0.08 10^6/uL (0.02-0.10)
[2024-10-23 09:46] LABS: Iron 47 ug/dL (37-170)
[2024-10-23 09:47] LABS: Anion Gap 9 mmol/L (4-12); Blood Urea Nitrogen 18 mg/dL (7-17); Calcium 9.1 mg/dL (8.4-10.2); Carbon Dioxide 26 mmol/L (22-30); Chloride 103 mmol/L (98-107); Estimated Glomerular Filt Rate 57; Glucose 100 mg/dL (65-110); Potassium 3.6 mmol/L (3.4-5.0); Sodium 138 mmol/L (137-145)
[2024-10-23 09:57] LABS: Percent Iron Saturation 11 % (20-50)
== END 2024-10-23 08:23 | disposition home or self-care (01) ==
LOC: ANHLAB 08:30
PROVIDERS: PCP Internal Medicine; Visit Provider Internal Medicine
DX: R07.9 Chest pain, unspecified (principal); D64.9 Anemia, unspecified
CPT/HCPCS: 36415; 71046; 80048; 82607; 82728; 82746; 83540; 83550; 85046

== ENCOUNTER 2024-11-08 07:52 | Emergency (ER) | payer OTHER, SELFPAY ==
--- NOTE | ~2024-11-08 | XR_ITS ---
EXAMINATION: XR chest 2V DATE: 11/08/2024 08:13 INDICATION: Cough. TECHNIQUE: PA and lateral views of the chest were obtained. COMPARISON: Chest radiograph dated 10/23/2024 FINDINGS: Mild perihilar bronchial wall thickening. No focal airspace opacities, pleural effusion or pneumothor ax. The cardiomediastinal silhouette is normal. Visualized bones and soft tissues are unremarkable. IMPRESSION: 1. Mild perihilar bronchial wall thickening without focal airspace opacities which could be seen with bronchitis or reactive airway disease/asthma. Reviewed, dictated and finalized at location B. IMPRESSION: 1. Mild perihilar bronchial wall thickening without focal airspace opacities wh ich could be seen with bronchitis or reactive airway disease/asthma.
--- OUTSIDE RECORDS SUMMARY | 2024-11-08 07:56 | XMS_ITS | Data Portability ---
Author Organization ID - [facility], [facility] Address [address] [facility] [address] [place] [address] Assessment No assessment recorded. Plan of Treatment Reminders Order Date Submit Date Provider Last Modified By Organization Details Last Modified Time Details Appointments Follow Up 15 2024 09:30A M Dennis Rahman MD Not available Not available Not available Lab BMP, serum or plasma 2024 025 [facility] (Lab), [address] [place] [address], [phone], 10/17/2024 06:12:49 ferritin, serum or plasma 2024 025 [facility] (Lab), [address] [place] [address], [phone], 10/17/2024 06:12:48 folate, serum 2024 025 [facility] (Lab), [address] [place] [address], [address], 10/17/2024 06:12:48 iron + total iron-bind ing capacity (TIBC), serum 2024 025 [facility] (Lab), [address] [place] [address], [address], 10/17/2024 06:12:48 retic count, blood 2024 025 [facility] (Lab), [address] [place] [address], [phone], 10/17/2024 06:12:48 vitamin B12, serum [address] [place] [address] (Lab), [address] [place] [address], [address], 10/17/2024 06:12:49 CBC w/ auto diff [address] [place] [address] (Lab), [address] [place] [address], [place], [address], 09/23/2024 17:52:47 CMP, serum or plasma [address] [place] [address] (Lab), [address] [place] [address], [id number], 09/11/2024 04:03:17 urinalysi s complete, reflex culture [address] [place] [address] (Lab), [address] [place] [address], [address], 09/11/2024 04:03:18 C-reactiv e protein, quantitat ioana, serum or plasma [address] [place] [address] (Lab), [address] [place] [address], [address], 09/11/2024 04:03:18 HbA1c (hemoglob in A1c), blood [address] [place] [address] (Lab), [address] [place] [address], [id number], 09/11/2024 04:03:17 microalbu min/creat inine, mass ratio, urine [address] [place] [address] (Lab), [address] [place] [address], [address], 09/11/2024 04:03:17 D-dimer, quant, plasma 2023 024 [facility] (Lab), [address] [place], [place] [address]e [facility], [place], [address], 06/02/2024 05:01:02 ESR (erythroc yte sedimenta tion rate), blood 2023 024 [facility] (Lab), [address] [place], [place] [address] [address] [place] [address], [address], 06/02/2024 05:01:03 unlisted lab - troponin baseline 2023 024 [facility] (Lab), [address] [place] [address], [address], 06/02/2024 05:01:03 CBC w/ auto diff 2023 024 [facility] (Lab), [address] [place] [address], [address], 06/02/2024 05:01:02 CMP, serum or plasma 2023 024 [facility] (Lab), [address] [place] [address], [address], 06/02/2024 05:01:03 C-reactiv e protein, quantitat ioana, serum or plasma 2023 024 [facility] (Lab), [address] [place] [address], [address], 06/02/2024 05:01:02 urinalysi s complete, reflex culture 2023 024 [facility] (Lab), [address] [place] [address], [address], 06/02/2024 05:01:02 HbA1c (hemoglob in A1c), blood 2023 024 [facility] (Lab), [address] [place] [address], [address], 06/02/2024 05:01:03 microalbu min/creat inine, mass ratio, urine 2023 024 [facility] (Lab), [address], [place], [address], 06/02/2024 05:01:03 CMP, serum or plasma 2023 [...] 05:00:57 Referral cardiolog ist referral [address] [facility], [address], [address], [place], [address], 07/07/2024 05:01:13 Procedures None recorded. Surgeries None recorded. Imaging home sleep study 2024 025 [email or web address], [address], [address], [place], [address], 10/11/2024 14:57:07 US, echocardi ogram, transthor acic, complete, w/ color flow - murmu and chest pain 2023 024 [facility], [address], [place], [address], 2024 05:01:20 XR, chest, 2 view 2023 024 [facility], [address] [address], [address], [place], [address], 06/09/2024 05:01:33 Medication Orders spironola ctone 50 mg tablet 2024 025 [facility], [address] [place] [address], [address], 10/10/2024 11:26:25 Ozempic 0.25 mg or 0.5 mg (2 mg/1.5 mL) subcutane ous pen injector 2024 025 [facility], [address] [place] [address], [address], 10/10/2024 11:26:26 amlodipin e 10 mg tablet 2024 025 [facility], [address] [place] [address], [address], 09/04/2024 11:45:13 atenolol 50 mg tablet 2024 025 [facility], [address] [place] [address], [address], 09/04/2024 11:45:12 clonidine HCl 0.1 mg tablet 2024 025 [facility], [address] [place], [address], 09/04/2024 11:45:13 hydrochlo rothiazid e 25 mg tablet 2024 025 [facility], [address] [place] [address], [address], 09/04/2024 11:45:12 losartan 100 mg tablet 2024 025 [facility], [address] [place] [address], [address], 09/04/2024 11:45:11 Advair Diskus 500 mcg-50 mcg/dose powder for inhalatio n 2024 025 [facility], [address] [place] [address], [address], 09/04/2024 11:45:12 albuterol sulfate HFA 90 mcg/actua tion aerosol inhaler 2024 025 [facility], [address] [place] [address], [address], 09/04/2024 11:45:13 Flonase Allergy Relief 50 mcg/actua tion nasal spray,toña pension 2024 025 [facility], [address] [place] [address], [address], 09/04/2024 11:45:13 Zithromax Z-Sergey 250 mg tablet 2024 025 [facility], [address] [place] [address], [address], 10/10/2024 11:18:23 potassium chloride ER 20 mEq tablet,ex tended release 2024 025 [facility], [address] [place] [address], [address], 09/04/2024 11:45:12 omeprazol e 40 mg capsule,d elayed release 2023 024 [facility], [address] [place] [address], [address], 12/07/2023 12:40:01 prednison e 20 mg tablet 2023 025 [facility], [address] [place] [address], [address], 09/04/2024 11:29:00 atenolol 50 mg tablet 2023 024 [id number], [address] [place], [address], 11/23/2023 14:45:54 Patient TargetsNo targets recorded. Patient Instructions Encounter Date Encounter Id Patient Instructions Last Modified By Organization Details Last Modified Time 08/23/2023 [id number] controlling your asthma: care instructions [email or web address] Not available 08/23/2023 13:02:53 learning about asthma [email or web address] Not available 08/23/2023 13:02:53 gastroesophageal reflux disease (GERD): care instructions [email or web address] Not available 08/23/2023 13:02:53 When You Want to Lose Weight: Care Instructions [email or web address] Not available 08/23/2023 13:02:53 upper respirator y infection (cold): care instructions [email or web address] Not available 08/23/2023 13:02:53 11/23/2023 [id number] chest pain: care instructions [id number] Not available 11/23/2023 14:45:50 controlling your asthma: care instructions [id number] Not available 11/23/2023 14:45:49 learning about asthma [email or web address] Not available 11/23/2023 14:45:49 gastroesophageal reflux disease (GERD): care instructions [email or web address] Not available 11/23/2023 14:45:49 When You Want to Lose Weight: Care Instructions Not available 11/23/2023 14:45:49 12/07/2023 [id number] chest pain: care instructions [email or web address] Not available 12/07/2023 12:39:58 gastroesophageal reflux disease (GERD): care instructions [email or web address] Not available 12/07/2023 12:39:58 When You Want to Lose Weight: Care Instructions [email or web address] Not available 12/07/2023 12:39:58 09/04/2024 [id number] When You Want to Lose Weight: Care Instructions Not available 09/04/2024 11:45:02 gastroesophageal reflux disease (GERD): care instructions [email or web address] Not available 09/04/2024 11:45:02 chest pain: care instructions [email or web address] Not available 09/04/2024 11:45:02 10/10/2024 [id number] When You Want to Lose Weight: Care Instructions [email or web address] Not available 10/10/2024 11:26:19 gastroesophageal reflux disease (GERD): care instructions [email or web address] Not available 10/10/2024 11:26:20 anemia: care instructions [email or web address] Not available 10/10/2024 11:26:19 chest pain: care instructions [email or web address] Not available 10/10/2024 11:26:19 hypokalemia: car e instructions [email or web address] Not available 10/10/2024 11:26:20 I spent a total of ___35___ minutes (excluding separately reportable procedure time ) in care of this patient. 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 [address] [facility] [address], [place], [address], 12/07/2023 12:24:12 Result Notes None recorded. Problems Name Problem SNOMED Code Status Onset Date Resolution Date Notes Provider Name and Address Organization Details Recorded Time Body mass index 40+ - severely obese 316665884 Completed 05/24/2023 Body mass index 40+ - severely obese Dennis Rahman MD [address] [facility] [address], [place], [address] , [facility] 16:20:04 Abnormal weight gain 619646986 Completed 05/24/2023 Abnormal weight gain Dennis Rahman MD [address] [facility] [address], [place], [address] , [facility] 3 16:20:19 Acute COVID-19 1721705135 Completed 05/24/2023 Acute COVID-19 Dennis Rahman MD [address] [facility] [address], [place], [address] , [facility] 3 16:20:06 Neck pain 93612690 Completed 05/24/2023 Painful neck Dennis Rahman MD [address] [facility] [address], [place], [address] , [facility] 3 16:17:28 Accident while engaged in work-rel ated activity Completed 05/24/2023 Work accident Dennis Rahman MD [address] [facility] [address], [place], [address] , [facility] 3 16:20:08 Sleep apnea 54447131 Active Sleep apnea Not Available [facility] 3 04:04:22 Headache 53560728 Completed 05/24/2023 Headache Dennis Rahman MD [address] [facility] [address], [place], [address] , [facility] 3 16:18:12 Asthma 060570963 Active Asthma Not Available [facility] 3 04:04:22 Obesity 053793483 Completed 05/24/2023 Obesity Dennis Rahman MD [address] [facility] [address], [place], [address] , [facility] 3 16:17:18 Obese class II 84041051951 4105 Completed 05/24/2023 Body mass index 35.00 to 39.99 Dennis Rahman MD [address] [facility] [address], [place], [address] , [facility] 3 16:17:25 Hypokale danial 84423505 Active Hypokale danial Not Available [facility] 3 04:04:22 Hyperten sive disorder 51941664 Active Hyperten kalin Not Available [facility] 3 04:04:22 Disorder due to work-rel ated activity accident 52182419 Completed 05/24/2023 Disorder due to work-rel ated activity accident Dennis Rahman MD [address] [facility] [address], [place], [address] , [facility] 3 16:20:00 Morbid obesity 466574839 Active Morbid obesity Not Available [facility] 3 04:04:23 Polycyst ic ovaries Completed 05/24/2023 Polycyst ic ovaries Dennis Rahman MD [address] [facility] [address], [place], [address] , [facility] 3 16:30:19 Constipa tion 38577631 Completed 05/24/2023 Constipa tion Dennis Rahman MD [address] [facility] [address], [place], [address] , [facility] 3 16:20:02 Mixed anxiety and depressi ve disorder 621555698 Active Anxiety depressi on Not Available [facility] 3 04:04:23 Gastroes ophageal reflux disease 277629513 Active 2022 Dennis Rahman MD [address] [facility] [address], [place], [address] , [facility] 3 16:23:59 Polycyst ic ovary syndrome 542346175 Active 2022 Dennis Rahman MD [address] [facility] [address], [place], [address] , [facility] 3 16:26:26 Prediabe krzysztof 087779228 Active 2022 MD Alondra Ferguson[address] [facility] [address], [place], [address] , [facility] 3 16:37:10 Acute upper respirat ory infectio n 96025003 Active 2023 MD Alondra Ferguson[address] [facility] [address], [place], [address] , [facility] 4 12:49:46 Chest pain 22143581 Active 2023 Dennis Rahman MD [address] [facility] [address], [place], [address] , [facility] 4 14:38:30 Acute urinary tract infectio n 693012313 Active 2023 Dennis Rahman MD [address] [facility] [address], [place], [address] , [facility] 4 16:47:18 Asthmati c bronchit is 779252375 Active 2024 Dennis Rahman MD [address] [facility] [address], [place], [address] , [facility] 5 11:35:40 Anemia 361958485 Active 2024 Dennis Rahman MD [address] [facility] [address], [place], [address] , [facility] 5 17:52:59 Problem Notes None recorded. Procedures Surgical History None recorded. Imaging Results Imaging Date Name Status LastModified by Organization Details LastModified Time 11/23/2023 electrocardiogram completed [address] [facility] [address], [place], [address], 12/07/2023 12:24:12 Procedure Notes None recorded. Medical [...] Last Updated DateTime 09/04/2024 167.64 cm Gracie Andrade [facility] 09/04/2024 11:00:37 Date Recorded Body temperature Body mass index (BMI) Body weight Heart rate Respiratory rate Oxygen saturation Oxygen saturation in Arterial blood by Pulse oximetry Systolic blood pressure Diastolic blood pressure Provider Name and Address Organization Details Last Updated DateTime 5 98.2 [degF] 42.3 kg/m2 872598. 2 g 97 /min 20 /min 99 % 99 % 138 mm[Hg] 98 mm[Hg] Dennis Rahman MD [address] [facility] [address], [place], [address], [facility] 5 11:06:23 Date Recorded Body height Body mass index (BMI) Body weight Body temperature Heart rate Oxygen saturation Oxygen saturation in Arterial blood by Pulse oximetry Respiratory rate Systolic blood pressure Diastolic blood pressure Provider Name and Address Organization Details Last Updated DateTime 5 167.64 cm 42 kg/m2 639023. 02 g 98.3 [degF] 91 /min 98 % 98 % 17 /min 155 mm[Hg] 100 mm[Hg] [facility] 10:43:29 Date Recorded Body height Body temperature Body mass index (BMI) Body weight Heart rate Respiratory rate Oxygen saturation Oxygen saturation in Arterial blood by Pulse oximetry Systolic blood pressure Diastolic blood pressure Provider Name and Address Organization Details Last Updated DateTime 4 167.64 cm 97.2 [degF] 39.9 kg/m2 731089. 32 g 105 /min 18 /min 95 % 95 % 160 mm[Hg] 92 mm[Hg] [facility] 4 14:29:38 Date Recorded Body height Body temperature Body mass index (BMI) Body weight Heart rate Respiratory rate Oxygen saturation Oxygen saturation in Arterial blood by Pulse oximetry Systolic blood pressure Diastolic blood pressure Provider Name and Address Organization Details Last Updated DateTime 4 167.64 cm 98.4 [degF] 40.5 kg/m2 078689. 68 g 90 /min 16 /min 100 % 100 % 122 mm[Hg] 72 mm[Hg] [facility] 4 12:08:00 Social History None recorded. Functional Status [...] 6 completed Dennis Rahman MD [address] [facility] [address], [place], [address], [facility] 08/23/2023 12:52:24 MMR 0 jovita Rahman MD [address] [facility] [address], [place], [address], [facility] 08/23/2023 12:52:24 DTP 5 completed Dennis Rahman MD [address] [facility] [address], [place], [address], [facility] 08/23/2023 12:52:24 DTP 5 jovita Rahman MD [address] [facility] [address], [place], [address], [facility] 08/23/2023 12:52:24 DTP 9 completed MD Alondra Ferguson[address] [facility] [address], [place], [address], [facility] 08/23/2023 12:52:24 DTP 0 jovita Rahman MD [address] [facility] [address], [place], [address], [facility] 08/23/2023 12:52:24 DTP 5 jovita Rahman MD [address] [facility] [address], [place], [address], [facility] 08/23/2023 12:52:24 OPV 5 completed MD Alondra Ferguson[address] [facility] [address], [place], [address], [facility] 08/23/2023 12:52:24 OPV 5 completed MD Alondra Ferguson[address] [facility] [address], [place], [address], [facility] 08/23/2023 12:52:24 OPV 9 completed MD Alondra Ferguson[address] [facility] [address], [place], [address], [facility] 08/23/2023 12:52:24 OPV 0 completed MD Charles Ferguson [address] [facility] [address], [place], [address], [facility] 08/23/2023 12:52:24 Novel Zplecsora-[id number], nasal 9 completed MD Alondra Ferguson[address] [facility] [address], [place], [address], [facility] 08/23/2023 12:52:24 Td (adult), 2 Lf tetanus toxoid, preservative free, adsorbed 1 completed MD Charles Ferguson [address] [facility] [address], [place], [address], [facility] 08/23/2023 12:52:24 Hep B, adolescent or pediatric 7 completed MD Charles Ferguson [address] [facility] [address], [place], [address], [facility] 08/23/2023 12:52:24 Hep B, adolescent or pediatric 7 completed MD Charles Ferguson [address] [facility] [address], [place], [address], [facility] 08/23/2023 12:52:24 Hep B, adolescent or pediatric 1 completed Dennis Rahman MD [address] [facility] [address], [place], [address], [facility] 08/23/2023 12:52:24 Hep A, pediatric, unspecified formulation 1 completed Dennis Rahman MD [address] [facility] [address], [place], [address], [facility] 08/23/2023 12:52:24 Influenza, split virus, quadrivalent, PF 9 completed Dennis Rahman MD [address] [facility] [address], [place], [address], [facility] 08/23/2023 12:52:24 Influenza, recombinant, quadrivalent, PF 0 [facility] 14:29:49 COVID-19, mRNA, LNP-S, PF, 100 mcg/0.5mL dose or 50 mcg/0.25mL dose 2 [facility]23 14:29:49 COVID-19, mRNA, LNP-S, PF, 100 mcg/0.5mL dose or 50 mcg/0.25mL dose 1 [facility]23 14:29:49 COVID-19, mRNA, LNP-S, PF, 100 mcg/0.5mL dose or 50 mcg/0.25mL dose 1 [facility]23 14:29:49 Past Encounters Encounter ID Performer Location Encounter Start Date Encounter Closed Date Diagnosis/Indication Diagnosis SNOMED-CT Code Diagnosis ICD10 Code Diagnosis Note [id number] Dennis Rahman MD [facility] [address] [facility] [address] [place] [address] 05/24/2023 15:37:40 05/24/2023 16:48:12 Hypertensive disorder 07743943 I10 on amlod, hctz, clonidine, losartanbp not cetjfij489 /100reprot s blood pressure at home is normal. always normalwill continue curent medicaiton s. 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 F41.8 now controlled Hypokalemia 79094136 E87 .6 on potassium supplement Gastroesop hageal reflux disease 187581611 K21.9 omeprazole Polycystic ovary syndrome 018638756 E28.2 testostero ne level high.start ed on metforminm enstrual irregulari ites has resovled nowsees gynecologi st Preventive procedure 169 787037 Z29.9 mammogram: neverpap smear: 05/23/2023 by gynecology flu: 2022pneumo carolyn: never Prediabetes 733184674 R7 3.03 a1c 6.0 : 5.7 [id number] Dennis Rahman MD [facility] [address] [facility] [address] [place] [address] 08/23/2023 12:34:23 08/23/2023 13:57:38 Hypertensive disorder 36957591 I10 on amlod, hctz, clonidine, losartanbp not skhbivg721 /100report s blood pressure at home is normal. always normal Prediabetes 800355067 R7 3.03 a1c 6.0 : 5.7 Asthma 453090615 J45.90 9 well controlled on wixela, albuterol prn, montelukas t Sleep apnea 09213618 G47 .30 follows with sleep specialist and currently ordered on cpap but she is not currently using it because fo mask problemshe gets it from [facility] sleep study 09/2021: mild sleep apnea AHI 6.4 Morbid obesity 820209896 E66.01 used to be on phentermin e and Topamaxsto pped phentermin e due to blood pressureon ly on topamax currenltyd iet an dphysical activity doinggetti ng started on gym Mixed anxi ety and depressive disorder 584447992 F41.8 now controlled Hypokalemia 56004325 E87 .6 on potassium supplement Gastroesop hageal reflux disease 342877759 K21.9 omeprazole Polycystic ovary syndrome 059541725 E28.2 testostero ne level high.start ed on metforminm enstrual irregulari ites has resovled nowsees gynecologi st Preventive procedure 169 685736 Z29.9 mammogram: neverPap smear: 05/23/2023 by gynecology flu: 2019pneumo carolyn: nevercovid : never Acute uppe r respiratory infection 96475443 J06.9 sine past few days.covid did not testalread y feelingotc meds and supportive management [id number] Dnenis Rahman MD [facility] [address] [place] [address] 11/23/2023 13:54:10 11/23/2023 14:50:57 Hypertensive disorder 44273585 I10 on amlod, hctz, clonidine, losartanbp not chsjrel195 /100report s blood pressure at home is normal. always normal at homeadd atenolol 50 mg daily Prediabetes 424057413 R7 3.03 a1c 6.0 : 5.7 Asthma 538979161 J45.90 9 well controlled on wixela, albuterol prn, montelukas t Sleep apnea 12920262 G47 .30 follows with sleep specialist and currently ordered on cpap but she is not currently using it because fo mask problemshe gets it from [facility] sleep study 09/2021: mild sleep apnea AHI 6.4 Morbid obesity 915526297 E66.01 used to be on phentermin e and Topamaxsto pped phentermin e due to blood pressureon ly on topamax currenltyd iet an dphysical activity doinggetti ng started on gym Mixed anxi ety and depressive disorder 038222451 F41.8 now controlled Hypokalemia 41162823 E87 .6 on potassium supplement Gastroesop hageal reflux disease 991412088 K21.9 omeprazole Polycystic ovary syndrome 887449256 E28.2 testostero ne level high.start ed on metforminm enstrual irregulari ites has resovled nowsees gynecologi st Preventive procedure 169 332902 Z29.9 mammogram: neverPap smear: 05/23/2023 by gynecology flu: 2019pneumo carolyn: nevercovid : never Chest pain 26597190 R07. [address] t changesche st wall tenderness seems costochond ritiswill give ac ourse of prednisone [id number] Dennis Rahman MD [facility] [address] [place] [address] 12/07/2023 11:30:54 12/07/2023 12:44:02 Chest pain 15742397 R07.9 ekg with nonspecifi c st t changesche st wall tenderness seems costochond ritisstill chest pain present on and off.cxr negatived dimer negativetr oponin negative.v olteran gel and patch biofreezep rednisone did not help much.on ibuprofen as neededhx of congenital heart disease in her son.will get echo. does have some murmurcard iology referral Hypertensive disorder 38 156412 I10 on amlod, hctz, clonidine, losartanbp not [id number] /100report s blood pressure at home is normal. always normal at homeadd atenolol 50 mg daily and improved bp today Prediabetes 301552978 R7 3.03 a1c 6.0 /23: 5.74/24: 5.5. uac negative Asthma 184934337 J45.90 9 well controlled on wixela, albuterol prn, montelukas t Sleep apnea 22471629 G47 .30 follows with sleep specialist and currently ordered on cpap but she is not currently using it because fo mask problemshe [facility]: mild sleep apnea AHI 6.4 Morbid obesity 315456218 E66.01 used to be on phentermin e and Topamaxsto pped phentermin e due to blood pressureon ly on topamax currenltyd iet an dphysical activity doinggetti ng started on gym Mixed anxi ety and depressive disorder 045792643 F41.8 now controlled Hypokalemia 80645937 E87 .6 on potassium supplement k lowwill increaese to 20 meq daily Gastroesop hageal reflux disease 766559286 K21.9 omeprazole will increase to 40 meq daily Polycystic ovary syndrome 702367405 E28.2 testostero ne level high.start ed on metforminm enstrual irregulari ites has resovled nowsees gynecologi st Preventive procedure 169 672991 Z29.9 mammogram: neverPap smear: 05/23/2023 by gynecology flu: 2019pneumo carolyn: nevercovid : never [id number] Dennis Rahman MD [facility] [address] [place] [address] 09/04/2024 10:35:33 09/04/2024 11:47:47 Chest pain 00044963 R07.9 ekg with nonspecifi c st t changesche st wall tenderness seems costochond ritisstill chest pain present on and off.cxr negatived dimer negativetr oponin negative.v olteran gel and patch biofreezep rednisone did not help much.on ibuprofen as neededhx of congenital heart disease in her son.she does have some murmurcard iology referralec ho per cardiology unremarkab le Hypertensive disorder 38 273440 I10 on amlod, hctz, clonidine, losartanbp not [id number] /100report s blood pressure at home is normal. always normal at homeadd atenolol 50 mg daily Prediabetes 656617638 R7 3.03 a1c 6.0 /23: 5.74/24: 5.5. uac negativewa s on metformin now stopped Asthma 487304525 J45.90 9 well controlled on wixela, albuterol prn, montelukas t Sleep apnea 54953129 G47 .30 follows with sleep specialist and currently ordered on cpap but she is not currently using it because fo mask problemshe gets it from [facility] sleep study 09/2021: mild sleep apnea AHI 6.4 Morbid obesity 298261282 E66.01 used to be on phentermin e and Topamaxsto pped phentermin e due to blood pressureon ly on topamax currenltyd iet an dphysical activity doinggetti ng started on gymnot on any medication s Mixed anxi ety and depressive disorder 274475792 F41.8 now controlled Hypokalemia 45976073 E87 .6 on potassium supplement k lowincreas ed to 20 meq daily Gastroesop hageal reflux disease 000802431 K21.9 omeprazole will increase to 40 meq daily Polycystic ovary syndrome 624592731 E28.2 testostero ne level high.start ed on metforminm enstrual irregulari ites has resovled nowsees gynecologi st Preventive procedure 169 353551 Z29.9 mammogram: neverPap smear: 05/23/2023 by gynecology flu: 2019pneumo carolyn: nevercovid : never Asthmatic bronchitis 405 371401 J45.909 cxr with left basal airspace disease.wa s treated with medrol dose sergey and doxycyline .still persistent cough.will add flonase nasal spray. will give a course of zpak.she was tested negative for flu, rsv and covid 08/06 [id number] Dennis Rahman MD [address] [place] [address] 10/10/2024 10:27:42 10/10/2024 11:28:50 Anemia 848787205 D64.9 hb down to 9.5 09/07 from 11.2 12/05microc ytic anemiaheav ier periodua is negative for hematuriaa dd ferrous sulfatelab s reordered and she will get this done. Hypokalemia 76249520 E87 .6 on potassium supplement k lowincreas ed to 20 meq dailyreech k labs since she is now on spironlact one Asthmatic bronchitis 405 711004 J45.909 cxr with left basal airspace disease.wa s treated with medrol dose sergey and doxycyline .still persistent cough.will add flonase nasal spray. will give a course of zpak.she was tested negative for flu, rsv and covid 08/06bette r but still has some coughlikel y from undelrying asthma as well. Chest pain 29407779 R07. 9 ekg with nonspecifi c st t changesche st wall tenderness seems costochond ritisstill chest pain present on and off.cxr negatived dimer negativetr oponin negative.v olteran gel and patch biofreezep rednisone did not help much.on ibuprofen as neededhx of congenital heart disease in her son.she does have some murmurcard iology referralec ho per cardiology unremarkab le Hypertensive disorder 38 589663 I10 on amlod, hctz, clonidine, losartan, spironolac tonebp not optimalrep orts blood pressure at home is normal. always normal at homeadd atenolol 50 mg dailycardi ology started recently on spironolac ton e25 mg dailywill incresase to 50 mg dailyreehc k bmp Prediabetes 195538372 R7 3.03 a1c 6.0 /: 5.74/24: 5.5. uac negativewa s on metformin now stopped08/15 5: 6.0discuss ed ozempic and will order that if covered Asthma 652691660 J45.90 9 well controlled on wixela, albuterol prn, montelukas t Sleep apnea 69244018 G47 .30 follows with sleep specialist and currently ordered on cpap but she is not currently using it because fo mask problemshe gets it from [facility] sleep study 09/2021: mild sleep apnea AHI 6.4with resistant hypertenio n, will reassess her sleep apnea.will reorder sleep apnea testing Morbid obesity 136441045 E66.01 used to be on phentermin e and Topamaxsto pped phentermin e due to blood pressureon ly on topamax currenltyd iet an dphysical activity doinggetti ng started on gymnot on any medication s Mixed anxi ety and depressive disorder 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.8 now controlled Gastroesop hageal reflux disease 594563685 K21.9 omeprazole will increase to 40 meq daily Polycystic ovary syndrome 691920866 E28.2 testostero ne level high.start ed on metforminm enstrual irregulari ites has resovled nowsees gynecologi st Preventive procedure 169 589895 Z29.9 mammogram: neverPap smear: 05/23/2023 by gynecology flu: 2019pneumo carolyn: nevercovid : never Health Concerns Section Related Observation LastModified by Organization Detai ls LastModified Time None Recorded Concern Status LastModified by Organization Details LastModified Time None Recorded Advance Directives Directive None Recorded Payers Encounter Date Sequence Insurance Name Policy Number Policy Brink Covered Member ID Brink Member ID Guarantor Name 08/23/2023 2 [facility] ON OR AFTER 02/11/21 (MEDICAID REPLACEMENT - HMO) Tracey Sabillon [id number] Tracey Sabillon 11/23/2023 2 [facility] ON OR AFTER 02/11/21 (MEDICAID REPLACEMENT - HMO) Tracey Sabillon [id number] Tracey Sabillon 12/07/2023 2 [facility] ON OR AFTER 02/11/21 (MEDICAID REPLACEMENT - HMO) Tracey Sabillno [id number] Tracey Sabillon 09/04/2024 2 [facility] ON OR AFTER 02/11/21 (MEDICAID REPLACEMENT - HMO) Tracey Sabillon [id number] Tracey Sabillon 09/04/[address] [facility] [id number] Tracey Sabillon [id number] Tracey Sabillon 10/10/2024 2 [facility] ON OR AFTER 02/11/21 (MEDICAID REPLACEMENT - HMO) Tracey Sabillon [id number] Tracey Sabillon 10/10/[address] [facility] [id number] Tracey Sabillon [id number] Tracey Sabillon Notes Date Note Type Note [...] (patient's location): Home Distant Site (provider's location): [facility] Physical Exam information for clinical team: Physical [...] is not monitored regularly. no fever, chills. Dennis Rahman MD [address], [place], [address], [facility] 08/23/2023 13:03:02 11/23/2023 text/html Pt here for 6 mo [facility] follow up. C/O chest pain and shortness of breath today. Has been having chest pain off and on for 1 week. States she has been under alot of stress at home. No nausea or vomiting. MD Alondra Ferguson[address] [facility] [address], [place], [address], [facility] 11/23/2023 14:46:10 12/07/2023 text/html Pt here for sick visit. C/O nights sweats on Monday night and then Monday she was walking in the mall when she began to have chest pain. Chest pain lasted for about 10 minutes. Improved when she sat down. No nausea or vomiting. Needs [facility] papers filled out for her employment. MD Charles Ferguson [address] [facility] [address], [place], [address], [facility] 12/07/2023 15:53:36 09/04/2024 text/html Pt was [...] fever, chills Dennis Rahman MD [address], [place], [address], [facility] 09/04/2024 11:45:39 10/10/2024 text/html Patient is here for 1 month f/u. C/O of cough and congestion ongoing since July. Cough does produce yellow mucus, happens mostly during the day, no fever. No SOB, chest pain, dizziness, nausea or diarrhea. she has asthma, has not seen pulmonary for a while. labs were reviewed during the visit Dennis Rahman MD [address], [place], [address], [facility] 10/10/2024 14:13:53 OBGyn Episode No OBEpisode recorded.
--- OUTSIDE RECORDS SUMMARY | 2024-11-08 07:56 | XMS_ITS | Data Portability ---
Author Organization [facility] [employer] , [facility] Address [address] [place] [address] Care Team Providers Care Towel Sewer Name Role Phone [facility] Communications Department Chairperson Assessment Encounter Date Assessment Date Assessment LastModified by Organization Details LastModified Time 05/23/2023 05/23/2023 Patient is an established patient who presents for a gynecological Annual Exam. The patient denies any changes in her medical history. The patient denies any changes in her family medical history. Annual Exam: She reports having no significant JUMP[employer]STING [employer]ER symptoms. Her menses are regular, occurring every [...] seen by PCP for preventative care: Yes [email or web address] Not available 05/23/2023 12:56:17 Plan of Treatment Reminders Order Date Submit Date Provider Last Modified By Organization Details Last Modified Time Details Appointments [employer] EST 2024 09:15A Soren PULIDO NP Not available Not available Not available Lab STI panel [address], [address] [place], [address], 05/25/2023 13:59:17 HPV E6+E7 mRNA, qualitati ve PCR, cervix 2022 023 [facility] Tony, [address] [place], [address], 05/24/2023 16:55:47 pap, LB 2022 023 [facility], [address] [facility], [place], [address], 06/06/2023 17:47:17 Referral None recorded. Procedures None recorded. Surgeries None recorded. Imaging None recorded. Medication Orders None recorded. Patient TargetsNo targets recorded. Patient Instructions Encounter Date Encounter Id Patient Instructions Last Modified By Organization Details Last Modified Time 05/23/2023 [id number] A healthy lifestyle: care instructions bnotzke Not [...] Abnormal Flag Note LastModifiedBy Organization Detail LastModifiedTime 05/23/20 23 05/24/2023 HPV HIGH RISK HPV high risk Negati [...] l cervi bull cytol ogy. Not Available [facility] [address] [place], [address], 05/24/2023 16:55:47 05/23/2005/25/2023 STI PANEL trichomonas vaginalis TRICH neg negati ve normal Not Available [facility] [address] [place], [address], 05/25/2023 13:59:17 05/23/2005/25/2023 STI PANEL chlamydia trachomatis CT neg negati ve normal This repor t is inten ded for us in clini bull monit oring and manag ement of patie nts. It is not inten ded for use in medic al-le gal appli catio n. Not Available [address], [address], 05/25/2023 13:59:17 05/23/2005/25/2023 STI PANEL neisseria gonorrhoeae GC neg negati ve normal This repor t is inten ded for us in clini bull monit oring and manag ement of patie nts. It is not inten ded for use in medic al-le gal appli catio n. Not Available [address], [place], [address], 05/25/2023 13:59:17 06/01/2006/06/2023 THINP REP TIS PAP clinical information: normal None given Not Available [employer] [address], [address], 06/06/2023 17:47:17 06/01/2006/06/2023 THINP REP TIS PAP LMP: normal NONE GIVEN Not Available [employer] [address], [address], 06/06/2023 17:47:17 06/01/2006/06/2023 THINP REP TIS PAP prev. Pap: normal NONE GIVEN Not Available [employer] [address] [address] [place], [address], 06/06/2023 17:47:17 06/01/2006/06/2023 THINP REP TIS PAP prev. BX: normal NONE GIVEN Not Available [address], [address], 06/06/2023 17:47:17 06/01/2006/06/2023 THINP REP TIS PAP source: normal Cervi x Not Available [address], [address], 06/06/2023 17:47:17 06/01/2006/06/2023 THINP REP TIS PAP statement of adequacy: normal Satis facto ry for evalu ation . Endoc ervic al/tr ansfo rmati on zone compo nent prese nt. Age and/o r menst rual statu s not provi ded Not Available [address], [address], 06/06/2023 17:47:17 06/01/2006/06/2023 THINP REP TIS PAP interpretati on/result: normal Cytol ogy Resul ts: Negat ioana for intra epith elial lesio n or isi garner . Not Available [address], [address], 06/06/2023 17:47:17 06/01/2006/06/2023 THINP REP TIS PAP comment: normal This Pap test has been evalu ated with compu ter [place] [employer] . Not Available [address], [address], 06/06/2023 17:47:17 06/01/2006/06/2023 THINP REP TIS PAP cytotechnolo gist: normal YQ, CT( CP) CT scree eloisa locat ion: [place] [address] [place] [address] Not Available [address] [place], [address], 06/06/2023 17:47:17 06/01/2006/06/2023 THINP REP TIS PAP comment EXPLA NATOR [...] clini bull infor matio n. Not Available [facility] [address] [place], [address], 06/06/2023 17:47:17 Result Notes None recorded. Problems Name Problem SNOMED Code Status Onset Date Resolution Date Notes Provider Name and Address Organization Details Recorded Time Lesion of ovary Completed 201905/22/2023 Other ovarian cyst, right side; Progress : Stable Added By: Trista Tinoco Add to Current Problems : YES ProblemS tatus: Current Diane Britsch null, [employer] [facility] 3 13:23:01 Screenin g for malignan t neoplasm of cervix Completed 201905/22/2023 Encounte r for screenin g for malignan t neoplasm of cervix; Progress : Stable Added By: Saba Hill Add to Current Problems : YES ProblemS tatus: Current Diane Britsch null, [employer] [facility] 3 13:22:58 Lesion of ovary Completed 201905/22/2023 Other ovarian cyst, left side; Progress : Stable Added By: Trista Tinoco Add to Current Problems : YES ProblemS tatus: Current Diane Britsch null, [employer] [facility] 3 13:23:05 Secondar y oligomen orrhea 64243515 Completed 201905/22/2023 Secondar y oligomen orrhea; Progress : Stable Added By: Elvira Rosenbaum Add to Current Problems : YES ProblemS tatus: Current Diane Plasencia null, [facility] 13:23:10 Sampling of vagina for Papanico laou smear Completed 201905/22/2023 Encounte r for gynecolo gical examinat ion (general ) (routine ) without abnormal findings ; Progress : Stable Added By: Saba Hill Add to Current Problems : YES ProblemS tatus: Current Diane Plasencia null, [employer] [facility] 13:23:13 Abnormal uterine bleeding 69990804322 100 Completed 201905/22/2023 Other specifie d abnormal uterine and vaginal bleeding ; Progress : Stable Added By: Yue Merchant Add to Current Problems : YES ProblemS tatus: Current Diane Plasencia null, [employer] [facility] 13:23:16 Problem Notes None recorded. Procedures Surgical History Date Name Laterality Status Provider Name and Address Organization Details Recorded Time 05/23/2023 Date of Last Pap Smear [facility] [address] [place], [address], [employer] 05/23/2023 13:02:48 Imaging Results None recorded. Procedure [...] ROGESTER one 10 mg oral tablet RxNorm: 0642395 Allow Substitu tion: True Refill Denied: No [...] metroNID AZOLE 500 mg oral tablet RxNorm: 366426 Allow Substitu tion: True Refill Denied: No [...] No Refill DateOccu rred: 11/14/19 Edited by: Jillian Clark ) on 01/21/20 Stopped by: Jillian Clark ) on 01/21/20 Not Available Not Available Not Available Flovent HFA active Flovent HFA RxNorm: 241820 Allow Substitu tion: False Refill Denied: No Refill DateOccu rred: 01/21/20 Edited by: Elvira Persaud) on 01/21/20 Stopped by: Elvira Persaud) on Not Available Not Available Not Available Vitals Date Recorded Body weight Body temperature Body mass index (BMI) Body height Systolic blood pressure Diastolic blood pressure Provider Name and Address Organization Details Last Updated DateTime 3 830997. 6 g 98.1 [degF] 39.8 kg/m2 167.64 cm 132 mm[Hg] 78 mm[Hg] Diane Plasencia [employer] [facility] 12:51:16 Social History Question Answer Notes LastModified by Organizat ion Details LastModified Time Tobacco Smoking Status Never Smoker Diane Plasencia [facility] [employer] [facility] 05/23/2023 12:44:08 What Is Your Level [...] SNOMED-CT Code Diagnosis ICD10 Code Diagnosis Note [id number] [facility] [address] [place] [address] 05/23/2023 12:31:55 05/24/2023 09:46:44 Depression screening 423300199 Z13.31 See Intake Screening - PHQ Venereal d isease screening 072018967 Z11.3 Gynecologi c examination 12832493 Z01.419 Screening for malignant neoplasm of cervix 000222495 Z12.4 Contracept ion education 916040435 Z30.09 Contracept ioana counseling : Discussed options [...] Brink Member ID Guarantor Name 05/23/2023 1 [facility] (MEDICARE REPLACEMENT/ ADVANTAGE - HMO) Tracey Sabillon [id number] Tracey Sabillon Notes Date Note Type Note [...] symptoms:No depression; No anxiety; No PMDD DARIO MONTANO- [address], [place], [address], [facility] 05/23/2023 13:03:27 OBGyn Episode No OBEpisode recorded.
--- OUTSIDE RECORDS SUMMARY | 2024-11-08 07:57 | XMS_ITS | Referral Summary ---
Author Organization [facility] Virtual [facility] Address [address] [place] [address] Phone Care Team Providers Care Braid Maker Name Role Phone Dennis Rahman MD Primary Care Provider [phone] Encounters Date Type Department Care Team Description 09/16/2024 10:00 AM POCKET ASSEMBLER Office Visit [facility] Cardiology [address] [facility] [address] [place] [address] Yevgeniy Engel MD Resistant hypertension (Primary Dx); Other chest pain from Last 3 Months Allergies Active Allergy [...] 0 02/12/2024 Body mass index 40.0-44.9, adult ([facility]) 02/11 Gastroesophageal reflux disease 05/24/2023 Polycystic [...] on file Legal Sex Female 7:51 AM POCKET ASSEMBLER Gender Identity Female 02/12/2020 5:20 PM CDT Sexual Orientation Straight 02/12/2020 5: 20 PM CDT Last Filed Vital Signs Vital Sign Reading Time Taken Comments Blood Pressure 134/98 09/16/2024 10:01 AM POCKET ASSEMBLER Pulse 88 09/16/2024 10:01 AM POCKET ASSEMBLER Temperature 37.2 C (98.9 F) 08/08/2024 11:19 AM POCKET ASSEMBLER Respiratory Rate 18 08/08/2024 2:00 PM POCKET ASSEMBLER Oxygen Saturation 96% 09/16/2024 10:01 AM POCKET ASSEMBLER Inhaled Oxygen Concentration - - Weight 118.4 kg (261 lb) 09/16/2024 10:01 AM POCKET ASSEMBLER Height 167.6 cm (5' 6 ) 09/16/2024 10:01 AM POCKET ASSEMBLER Body Mass Index 42.13 09/16/2024 10:01 AM POCKET ASSEMBLER Plan of Treatment Not on file Insurance [facility] [place] [address] [facility] Care Teams Braid Maker Relationship Specialty Start Date End Date Dennis Rahman MD [address] [address] PCP - General 09/25/20
--- OUTSIDE RECORDS SUMMARY | 2024-11-08 07:57 | XMS_ITS | Clinical Summary ---
Author Organization [facility] Virtual Care Address [address] [place] [address] Phone Care Team Providers Care Instrument Lens Grinder Apprentice Name Role Phone Dennis Rahman MD Primary Care Provider [phone] Allergies Active Allergy Reactions Criticality Noted Date [...] 0 02/12/2024 Body mass index 40.0-44.9, adult ([facility]) 02/11 Gastroesophageal reflux disease 05/24/2023 Polycystic ovary syndrome 05/24/2023 Prediabetes 05/24/2023 Asthma 07/22/2021 Shortness of breath 07/22/2021 COVID-19 07/22/2021 Encounters Date Type Department Care Team Description 09/16/2024 10:00 AM VARNISH MELTER Office Visit [facility] Cardiology [address] [place] [address] Yevgeniy Engel MD Resistant hypertension (Primary Dx); Other chest pain from Last 3 Months Immunizations Immunization Administration [...] on file Legal Sex Female 7:51 AM VARNISH MELTER Gender Identity Female 02/12/2020 5:20 PM CDT Sexual Orientation Straight 02/12/2020 5: 20 PM CDT Obstetrics History Last Filed Vital Signs Vital Sign Reading Time Taken Comments Blood Pressure 134/98 09/16/2024 10:01 AM VARNISH MELTER Pulse 88 09/16/2024 10:01 AM VARNISH MELTER Temperature 37.2 C (98.9 F) 08/08/2024 11:19 AM VARNISH MELTER Respiratory Rate 18 08/08/2024 2:00 PM VARNISH MELTER Oxygen Saturation 96% 09/16/2024 10:01 AM VARNISH MELTER Inhaled Oxygen Concentration - - Weight 118.4 kg (261 lb) 09/16/2024 10:01 AM VARNISH MELTER Height 167.6 cm (5' 6 ) 09/16/2024 10:01 AM VARNISH MELTER Body Mass Index 42.13 09/16/2024 10:01 AM VARNISH MELTER Plan of Treatment Health Maintenance Due Date [...] 2 - PCV) 2003 Covid-19 Vaccine ( season) 2024 08/28/2021, 01/24/2021, 12/23/2020 Influenza Vaccine (#1) 2024 05/07/2020, 2018 Hepatitis B Screening Completed 05/16/2001 , 03/13/1997, 01/10/1997 HPV Vaccines Aged Out No longer eligi ble based on patient's age to complete this topic Insurance [facility] [address] [facility] HMO/PPO Address: [address] [address] [place] [address] Care Teams Instrument Lens Grinder Apprentice Relationship Specialty Start Date End Date Dennis Rahman MD [address] [facility] [facility] [address] [place] [address] PCP - General 09/25/20
--- OUTSIDE RECORDS SUMMARY | 2024-11-08 07:57 | XMS_ITS | Encounter Summary ---
Author Organization [facility] Healthcare Address [address] [place] [address] Care Team Providers Care Vaccines Solutions Specialist Name Role Phone Dennis Rahman MD Primary Care Provider Encounter Details Date Type Department Care Team (Late st Contact Info) Description 11/23/2023 Orders Only [facility] Health Information Management [address] [place] [id number] Scanning, Provider Social History Tobacco Use Types Packs/Day Years Used Date Smoking Tobacco: Unknown Comments Unknown Sex and Gender Information Value Date Recorded Sex Assigned at Not on file Legal Sex Female 7:51 AM COCKTAIL LOUNGE MANAGER Gender Identity Female 02/12/2020 5:20 PM CDT [...] COVID: Suspected 08/08/2024 08/08/2024 08/08/2024 12:31 PM COCKTAIL LOUNGE MANAGER documented as of this encounter Care Teams Vaccines Solutions Specialist Relationship Specialty Start Date End Date Dennis Rahman MD [address] [facility] [address] [place] [address] PCP - General 09/25/20 documented as of this encounter
[2024-11-08 08:03] VITALS: BP 134/100; PULSE 100; RESP 16; TEMP 37.8; O2SAT 100
--- OUTSIDE RECORDS SUMMARY | 2024-11-08 08:37 | XMS_ITS | Encounter Summary ---
Author Organization [facility] Healthcare Address [address] [place] [address] Care Team Providers Care Executive Communications Manager Name Role Phone Dennis Rahman MD Primary Care Provider [phone] Encounter Details Date Type Department Care Team (Late st Contact Info) Description 11/23/2023 Orders Only [facility] Health Information Management [address] [place] [id number] Scanning, Provider Social History Tobacco Use Types Packs/Day Years Used Date Smoking Tobacco: Unknown Comments Unknown Sex and Gender Information Value Date Recorded Sex Assigned at Not on file Legal Sex Female 7:51 AM CENTER PUNCH OPERATOR Gender Identity Female 02/12/2020 5:20 PM CDT [...] COVID: Suspected 08/08/2024 08/08/2024 08/08/2024 12:31 PM CENTER PUNCH OPERATOR documented as of this encounter Care Teams Executive Communications Manager Relationship Specialty Start Date End Date Dennis Rahman MD [address] [facility] [address] [place] [address] PCP - General 09/25/20 documented as of this encounter
--- OUTSIDE RECORDS SUMMARY | 2024-11-08 08:37 | XMS_ITS | Referral Summary ---
Author Organization [facility] Virtual Care Address [address] [place] [phone] Phone Care Team Providers Care Exploration Engineer Name Role Phone Dennis Rahman MD Primary Care Provider [phone] Encounters Date Type Department Care Team Description 09/16/2024 10:00 AM DIRECTOR OF SOFTWARE DEVELOPMENT Office Visit [facility] Medical Group Cardiology [address] [facility] [address] [place] [phone] Yevgeniy Engel MD Resistant hypertension (Primary Dx); [...] 40.0-44.9, adult ([facility]) 02/11 Gastroesophageal reflux disease 05/24/2023 Polycystic [...] on file Legal Sex Female 7:51 AM DIRECTOR OF SOFTWARE DEVELOPMENT Gender Identity Female 02/12/2020 5:20 PM CDT Sexual Orientation Straight 02/12/2020 5: 20 PM CDT Last Filed Vital Signs Vital Sign Reading Time Taken Comments Blood Pressure 134/98 09/16/2024 10:01 AM DIRECTOR OF SOFTWARE DEVELOPMENT Pulse 88 09/16/2024 10:01 AM DIRECTOR OF SOFTWARE DEVELOPMENT Temperature 37.2 C (98.9 F) 08/08/2024 11:19 AM DIRECTOR OF SOFTWARE DEVELOPMENT Respiratory Rate 18 08/08/2024 2:00 PM DIRECTOR OF SOFTWARE DEVELOPMENT Oxygen Saturation 96% 09/16/2024 10:01 AM DIRECTOR OF SOFTWARE DEVELOPMENT Inhaled Oxygen Concentration - - Weight 118.4 kg (261 lb) 09/16/2024 10:01 AM DIRECTOR OF SOFTWARE DEVELOPMENT Height 167.6 cm (5' 6 ) 09/16/2024 10:01 AM DIRECTOR OF SOFTWARE DEVELOPMENT Body Mass Index 42.13 09/16/2024 10:01 AM DIRECTOR OF SOFTWARE DEVELOPMENT Plan of Treatment Not on file Insurance [facility] [place] [address] [facility] Care Teams Exploration Engineer Relationship Specialty Start Date End Date Dennis Rahman MD [address] [address] PCP - General 09/25/20
--- OUTSIDE RECORDS SUMMARY | 2024-11-08 08:38 | XMS_ITS | Clinical Summary ---
Author Organization [facility] Virtual Care Address [address] [place] [phone] Phone Care Team Providers Care Cooking Chef Name Role Phone Dennis Rahman MD Primary Care Provider [phone] Allergies Active Allergy Reactions Criticality Noted Date [...] 0 02/12/2024 Body mass index 40.0-44.9, adult ([facility]) 02/11 Gastroesophageal reflux disease 05/24/2023 Polycystic ovary syndrome 05/24/2023 Prediabetes 05/24/2023 Asthma 07/22/2021 Shortness of breath 07/22/2021 COVID-19 07/22/2021 Encounters Date Type Department Care Team Description 09/16/2024 10:00 AM FINANCIAL ADMINISTRATION OFFICER Office Visit [facility] Medical Group Cardiology [address] [place] [address] Yevgeniy Engel MD Resistant hypertension [...] on file Legal Sex Female 7:51 AM FINANCIAL ADMINISTRATION OFFICER Gender Identity Female 02/12/2020 5:20 PM CDT Sexual Orientation Straight 02/12/2020 5: 20 PM CDT Obstetrics History Last Filed Vital Signs Vital Sign Reading Time Taken Comments Blood Pressure 134/98 09/16/2024 10:01 AM FINANCIAL ADMINISTRATION OFFICER Pulse 88 09/16/2024 10:01 AM FINANCIAL ADMINISTRATION OFFICER Temperature 37.2 C (98.9 F) 08/08/2024 11:19 AM FINANCIAL ADMINISTRATION OFFICER Respiratory Rate 18 08/08/2024 2:00 PM FINANCIAL ADMINISTRATION OFFICER Oxygen Saturation 96% 09/16/2024 10:01 AM FINANCIAL ADMINISTRATION OFFICER Inhaled Oxygen Concentration - - Weight 118.4 kg (261 lb) 09/16/2024 10:01 AM FINANCIAL ADMINISTRATION OFFICER Height 167.6 cm (5' 6 ) 09/16/2024 10:01 AM FINANCIAL ADMINISTRATION OFFICER Body Mass Index 42.13 09/16/2024 10:01 AM FINANCIAL ADMINISTRATION OFFICER Plan of Treatment Health Maintenance Due Date [...] patient's age to complete this topic Insurance [facility] [place] [address] [place] [address] [facility] HMO/PPO Address: [address] [address] [place] [address] Care Teams Cooking Chef Relationship Specialty Start Date End Date Dennis Rahman MD [address] [facility] [address] [place] [address] PCP - General 09/25/20
[2024-11-08 09:02] LABS: Influenza A QL RT-PCR Negative (Negative); Influenza B QL RT-PCR Positive (Negative); RSV RNA, RT-PCR Negative (Negative); SARS-CoV-2 RNA PCR Negative (Negative)
[2024-11-08 09:32] LABS: Basophils Percent Auto 0.4 % (0.2-1.2); Eosinophils Absolute Auto 0.1 K/mm3 (0-0.3); Hematocrit 36.3 % (37.0-47.0); Immature Granulocyte Absolute 0.05 K/mm3 (0.00-0.031); Immature Granulocyte Percent A 0.6 % (0-0.5); Lymphocytes Absolute Auto 0.52 K/mm3 (0.9-3.2); Lymphocytes Percent Auto 6.3 % (18.3-44.2); Mean Corpuscular HGB Conc 30.3 g/dl (32-36); Mean Corpuscular Hemoglobin 22.9 pg (26-34); Mean Corpuscular Volume 75.6 fl (80-100); Mean Platelet Volume 9.3 fl (7.4-10.4); Monocytes Absolute Auto 0.8 K/mm3 (0.1-0.6); Monocytes Percent Auto 10.1 % (2.6-8.5); Neutrophils Absolute Auto 6.8 K/mm3 (1.3-6.7); Neutrophils Percent Auto 81.6 % (45.5-73.1); Platelet Count Result 433 k/mm3 (150-375); Red Cell Distribution Width 22.3 % (11.5-14.5); White Blood Count 8.3 K/mm3 (4.5-10.0)
[2024-11-08 09:40] VITALS: BP 130/89; PULSE 100; RESP 16; TEMP 37.9; O2SAT 97
[2024-11-08] MEDS: ONDANSETRON INJ 4 MG/2 ML VIAL IV PUSH (09:41)
[2024-11-08] MEDS: KETOROLAC 30 MG/ML VIAL (*BKC) IV PUSH (09:41)
[2024-11-08] MEDS: SODIUM CHLORIDE 0.9% IV 500 ML 999 ML IV CONT (09:41)
[2024-11-08 09:43] LABS: Alanine Aminotransferase 34 U/L (6-35); Albumin Level 4.4 g/dL (3.5-5.1); Alkaline Phosphatase 47 U/L (38-126); Anion Gap 8 mmol/L (4-12); Aspartate Amino Transferase 43 U/L (14-36); Bilirubin,Total 0.4 mg/dL (0.2-1.3); Blood Urea Nitrogen 10 mg/dL (7-17); Calcium 9.6 mg/dL (8.4-10.2); Carbon Dioxide 28 mmol/L (22-30); Chloride 100 mmol/L (98-107); Estimated CRCL calculation 88 ml/min; Estimated Glomerular Filt Rate > 60; Glucose 108 mg/dL (65-110); Potassium 3.8 mmol/L (3.4-5.0); Sodium 136 mmol/L (137-145)
[2024-11-08 09:52] LABS: Giant Platelets Present; Large Platelets Present; Platelet Estimate Increased (Adequate)
[2024-11-08 09:54] LABS: Anisocytosis 1+; Hypochromasia 1+; Ovalocytes 1+
[2024-11-08 09:58] LABS: Schistocytes None Seen
--- NOTE | 2024-11-08 10:46 | ED.GENADULT ---
HPI - General Adult General Chief complaint: Upper Respiratory Infection Stated complaint: headache, cough, diarrhea, nausea Time Seen by Provider: 11/08/24 07:56 Source: patient Mode of arrival: ambulatory Limitations: no limitations History of Present Illness HPI narrative: 39-year-old with a history of asthma, hypertension presents to the ER with a complains of nausea, vomiting, diarrhea, abdominal cramps, cough and congestion for past 2 days. She states that she is unable to hold any fluids down. She denies any fever Onset (ago): day(s) (2) Severity: moderate Pain Consistency: constant Relieving factors: none Exacerbating factors: none Associated symptoms: denies other symptoms Related Data Home Medications ?Medication ?Instructions ?Recorded ?Confirmed ?Last Taken ?Type clonidine HCl 0.1 mg tablet 0.1 mg TID 07/12/22 08/08/22 Unknown History hydrochlorothiazide 25 mg tablet 25 mg DAILY 07/12/22 08/08/22 Unknown History metformin 500 mg tablet 500 mg BID 07/12/22 08/08/22 Unknown History cyclobenzaprine 10 mg tablet 10 mg PO TID 08/08/22 08/08/22 Unknown History losartan 100 mg tablet 100 mg PO DAILY 08/08/22 08/08/22 Unknown History omeprazole 20 mg capsule,delayed 20 mg PO DAILY 08/08/22 08/08/22 Unknown History release Allergies Allergy/AdvReac Type Severity Reaction Status Date / Time No Known Allergies Allergy Mild Verified 11/08/24 07:53 Review of Systems Review of Systems: All systems reviewed & are unremarkable except as noted in HPI and below Constitutional: Constitutional: Reports no additional constitutional complaints Eyes: Eyes: Reports no additional eye complaints ENT: Reports system reviewed and no additional complaints, except as documented Cardiovascular: Cardiovascular: Reports no additional cardiovascular complaints Respiratory: Respiratory: Reports as per HPI Gastrointestinal: Gastrointestinal: Reports as per HPI Musculoskeletal: Musculoskeletal: Reports no additional musculoskeletal complaints Neurologic: Reports system reviewed and no additional complaints, except as documented [facility] Past Medical History Medical History Asthma Prediabetes Hypertension Surgical History Surgical History No history of previous surgery Social History Social History Smoking status: Never smoker Gender identity (if verbalized by the patient): Female Exam Narrative: GENERAL: Well-appearing, well-nourished, and in no acute distress. HEAD: Normocephalic, atraumatic. EYES: PERRLA and EOMI. NECK: Supple. CHEST: Clear to auscultation. No respiratory distress. HEART: Regular rate and rhythm. No murmur heard. Normal peripheral pulses. ABDOMEN: Soft, nontender, nondistended, normal active bowel sounds. EXTREMITIES: Normal range of motion. No edema. SKIN: Warm, dry, no rash. NEURO: No focal deficits. Alert and oriented x3. PSYCH: Normal mood and affect. Course Course Emergency Course: Patient did receive IV fluids, Zofran and Toradol she states she is feeling slightly better today informed her about the lab work, chest x-ray findings. Advised to take medication as prescribed. Drink plenty of fluids as tolerated. , rest Vital Signs Vital signs: Vital Signs Temperature 37.8 C H 11/08/24 08:03 Pulse Rate 100 11/08/24 08:03 Respiratory Rate 16 11/08/24 08:03 Blood Pressure 134/100 H 11/08/24 08:03 Pulse Oximetry 100 11/08/24 08:03 Oxygen Delivery Room Air 11/08/24 08:03 Temperature 37.9 C H 11/08/24 09:40 Pulse Rate 100 11/08/24 09:40 Respiratory Rate 16 11/08/24 09:40 Blood Pressure 130/89 11/08/24 09:40 Pulse Oximetry 97 11/08/24 09:40 Oxygen Delivery Room Air 11/08/24 08:10 Medical Decision Making Medical Records Medical records reviewed: Yes I reviewed the external patient's medical records. Vital Signs Vital Signs: Vital Signs Temperature 37.8 C H 11/08/24 08:03 Pulse Rate 100 11/08/24 08:03 Respiratory Rate 16 11/08/24 08:03 Blood Pressure 134/100 H 11/08/24 08:03 Pulse Oximetry 100 11/08/24 08:03 Oxygen Delivery Room Air 11/08/24 08:03 Temperature 37.9 C H 11/08/24 09:40 Pulse Rate 100 11/08/24 09:40 Respiratory Rate 16 11/08/24 09:40 Blood Pressure 130/89 03/28/25 09:40 Pulse Oximetry 97 11/08/24 09:40 Oxygen Delivery Room Air 11/08/24 08:10 Lab Data Lab results reviewed: Yes I reviewed the patient's lab results. 11/08/24 09:27 11/08/24 09:27 Labs: Lab Results 11/08/24 11/08/24 Range/Units 08:21 09:27 WBC 8.3 (4.5-10.0) K/mm3 RBC 4.80 (4.2-5.4) M/mm3 Hgb 11.0 L (12.0-15.0) g/dL Hct 36.3 L (37.0-47.0) % MCV 75.6 L (80-100) fl MCH 22.9 L (26-34) pg MCHC 30.3 L (32-36) g/dl RDW 22.3 H (11.5-14.5) % Plt Count 433 H (150-375) k/mm3 MPV 9.3 (7.4-10.4) fl Immature Gran % (Auto) 0.6 H (0-0.5) % Neut % (Auto) 81.6 H (45.5-73.1) % Lymph % (Auto) 6.3 L (18.3-44.2) % Sabine % (Auto) 10.1 H (2.6-8.5) % Eos % (Auto) 1.0 (0-4.4) % Baso % (Auto) 0.4 (0.2-1.2) % Lymph # (Auto) 0.52 L (0.9-3.2) K/mm3 Sabine # (Auto) 0.8 H (0.1-0.6) K/mm3 Eos # (Auto) 0.1 (0-0.3) K/mm3 Baso # (Auto) 0.0 (0.0-0.1) K/mm3 Abs Immat Gran (auto) 0.05 H (0.00-0.031) K/mm3 Absolute Neuts (auto) 6.8 H (1.3-6.7) K/mm3 Absolute Nucleated RBC 0.000 (0.0-0.012) K/mm3 Band Neutrophils % Not Reportable Nucleated RBC % 0.0 (0.0-0.2) % Platelet Estimate Increased (Adequate) Large Platelets Present Giant Platelets Present Hypochromasia 1+ Anisocytosis 1+ Ovalocytes 1+ Schistocytes None seen Sodium 136 L (137-145) mmol/L Potassium 3.8 (3.4-5.0) mmol/L Chloride 100 (98-107) mmol/L Carbon Dioxide 28 (22-30) mmol/L Anion Gap 8 (4-12) mmol/L BUN 10 D (7-17) mg/dL Creatinine 1.00 (0.7-1.0) mg/dL Estim Creat Clear Calc 88 ml/min Estimated GFR > 60 (59 - ) Glucose 108 (65-110) mg/dL Calcium 9.6 (8.4-10.2) mg/dL Total Bilirubin 0.4 (0.2-1.3) mg/dL AST 43 H (14-36) U/L ALT 34 (6-35) U/L Alkaline Phosphatase 47 (38-126) U/L Total Protein 8.0 (6.3-8.2) g/dL Albumin 4.4 (3.5-5.1) g/dL Influenza A (RT-PCR) Negative (Negative) Influenza B (RT-PCR) Positive A (Negative) RSV (RT-PCR) Negative (Negative) SARS-CoV-2 RNA (RT-PCR) Negative (Negative) Imaging Data Radiologist's impression: ITS Impressions Chest X-Ray 11/08/24 08:18 IMPRESSION: 1. Mild perihilar bronchial wall thickening without focal airspace opacities which could be seen with bronchitis or reactive airway disease/asthma. Discharge Plan Discharge Clinical Impression: Influenza B, Gastroenteritis Patient Disposition: Home, Self-Care Condition: Stable Instructions: Influenza (ED) Additional Instructions: Drink more fluids as tolerated, Tylenol or ibuprofen for body aches and fever take Zofran as needed for nausea and vomiting,rest. Patient Language: St Helenian Prescriptions: New ondansetron 4 mg tablet,disintegrating 4 mg PO Q6-8H PRN (Reason: nausea and vomiting) Qty: 14 0RF No Action metformin 500 mg tablet 500 mg BID clonidine HCl 0.1 mg tablet 0.1 mg TID hydrochlorothiazide 25 mg tablet 25 mg DAILY cyclobenzaprine 10 mg tablet 10 mg PO TID omeprazole 20 mg capsule,delayed release(DR/EC) 20 mg PO DAILY losartan 100 mg tablet 100 mg PO DAILY prednisone 20 mg tablet See Rx Instructions .ROUTE .COMPLEX Qty: 9 0RF Rx Instructions: Take 40 mg daily for 3 days, 20 mg daily for 3 days baclofen 10 mg tablet 10 mg PO TID PRN (Reason: muscle pain) Qty: 10 0RF ibuprofen 600 mg tablet 600 mg PO TID PRN (Reason: fever or pain) Qty: 30 0RF ondansetron 4 mg tablet,disintegrating 4 mg PO Q8H PRN (Reason: nausea and vomiting) Qty: 10 0RF azelastine 137 mcg (0.1 %) aerosol,spray See Rx Instructions .ROUTE .COMPLEX Qty: 90 1RF Dose Instruction: INSTILL 1 SPRAY TWICE A DAY INTO EACH NOSTRIL Rx Instructions: INSTILL 1 SPRAY TWICE A DAY INTO EACH NOSTRIL Follow-up/Referrals: Dennis Rahman MD [Primary Care Provider] - Norman Chisholm MD [Physician] - Time of Disposition: 10:52
[2024-11-08 10:55] VITALS: BP 132/80; PULSE 90; RESP 16; O2SAT 97
== END 2024-11-08 10:55 | disposition home or self-care (01) ==
PROVIDERS: Emergency Provider Family Medicine; PCP Internal Medicine
DX: J10.1 Influenza due to other identified influenza virus with other respiratory manifestations (principal); K52.9 Noninfective gastroenteritis and colitis, unspecified; Z20.822 Contact with and (suspected) exposure to COVID-19; J45.909 Unspecified asthma, uncomplicated; I10 Essential (primary) hypertension; R73.03 Prediabetes
CPT/HCPCS: 36415; 71046; 80053; 85025; 87637; 96361; 96374; 96375; 99284; J1885; J2405; J7040